=== PATIENT | female | born 1940 | race Caucasian/White ===

== ENCOUNTER 2017-11-06 10:53 | Emergency (ER) | payer OTHER ==
[~2017-11-06] VITALS: Ht 152.4 cm; Wt 69.8 kg
[~2017-11-06 10:53] MED LIST: CALCAVITD PO; CARV6.25 PO; FEXO180 PO; FISH1000 PO; LEVSOD100 PO; LEVSOD25 PO; ONDA8ODT MM; OXYACE5T PO; PENVK500 PO; PRILOSEC; Prilosec Otc20 MG; RXONDA4ODT MM; TRAM50 PO; TYLENOL W/CODEINE
[2017-11-06] MEDS ORDERED: DICL75ER PO (11:02)
[2017-11-06] MEDS ORDERED: TRAM50 PO (11:03)
[2017-11-06 11:57] LABS: BASOPHILS ABSOLUTE AUTO 0.06 K/mm3 (0.00-0.23); BASOPHILS PERCENT AUTO 1 % (0-2); EOSINOPHILS ABSOLUTE AUTO 0.16 K/mm3 (0.00-0.68); EOSINOPHILS PERCENT AUTO 2 % (0-6); Hematocrit 41.2 % (33.0-51.0); Hemoglobin 14.1 g/dL (11.5-16.0); IMMATURE GRAN ABSOLUTE AUTO 0.02 K/mm3 (0.00-0.10); IMMATURE GRAN PERCENT AUTO 0 % (0-1); LYMPHOCYTES ABSOLUTE AUTO 1.79 K/mm3 (0.84-5.20); LYMPHOCYTES PERCENT AUTO 23 % (21-46); MONOCYTES ABSOLUTE AUTO 0.67 K/mm3 (0.16-1.47); MONOCYTES PERCENT AUTO 9 % (4-13); Mean Corpuscular HGB 30.9 pg (26.0-34.0); Mean Corpuscular HGB Conc 34.2 g/dL (31.5-36.5); Mean Corpuscular Volume 90 fL (80-100); Mean Platelet Volume 8.7 fL (9.1-12.4); NEUTROPHILS ABSOLUTE AUTO 5.01 K/mm3 (1.96-9.15); NEUTROPHILS PERCENT AUTO 65 % (41-73); Platelet Count 327 K/mm3 (150-400); RDW Coefficient Variation 13.5 % (11.7-14.2); RDW Standard Deviation 44.7 fL (35.1-46.3); Red Blood Cell Count 4.57 M/mm3 (3.80-5.20); White Blood Cell Count 7.71 K/mm3 (4.00-11.30)
[2017-11-06 12:24] LABS: Albumin, Blood 3.6 g/dL (3.4-5.0); Albumin/Globulin Ratio 0.9 (0.8-1.8); Bilirubin, Total 0.6 mg/dL (0.1-1.0); Calcium, Blood 8.8 mg/dL (8.5-10.1); Globulin, Blood 4.1 g/dL (2.2-4.0); Potassium, Blood 4.1 mmol/L (3.5-5.5); Total Protein, Blood 7.7 g/dL (6.4-8.2)
[2017-11-06 13:08] LABS: Source, Urine Clean Catch
[2017-11-06 13:15] LABS: Bilirubin, Urine Neg (Neg); Blood, Urine 1+ (Neg); Glucose Qualitative, Urine Neg (Neg); Ketones, Urine Neg (Neg); Leukocyte Esterase, Urine 3+ (Neg); Nitrite, Urine Neg (Neg); Protein, Urine Neg (Neg); Urobilinogen, Urine NORM (Normal)
[2017-11-06 13:23] LABS: Appearance, Urine Clear (Clear); Color, Urine Yellow (P-Yellow)
[2017-11-06 13:26] LABS: Bacteria Few /hpf; Red Blood Cells, Urine 0-2 /hpf (0-2); Squamous Epithelial Cells Rare /hpf (Few)
== END 2017-11-06 14:39 | disposition home or self-care (01) ==
LOC: ER 10:53
PROVIDERS: Physician Assistant
DX: R06.02 Shortness of breath (principal); I48.91 Unspecified atrial fibrillation; E03.9 Hypothyroidism, unspecified; J45.909 Unspecified asthma, uncomplicated; K21.9 Gastro-esophageal reflux disease without esophagitis; Z79.899 Other long term (current) drug therapy
CPT/HCPCS: 36415; 71046; 80053; 81001; 84484; 85025; 87086; 93005; 93010; 93971; 99285-25

== ENCOUNTER 2017-11-11 11:48 | Day surgery (SDC) | payer OTHER ==
[~2017-11-11] VITALS: Wt 70.7 kg
[~2017-11-11 11:48] MED LIST changes: +DICL75ER PO
[2017-11-11] MEDS ORDERED: ASPI81CH PO (12:28)
== END 2017-11-11 13:10 | disposition home or self-care (01) ==
LOC: ORSCSDS 11:48
DX: H04.553 Acquired stenosis of bilateral nasolacrimal duct (principal); Z53.9 Procedure and treatment not carried out, unspecified reason
CPT/HCPCS: J0171

== ENCOUNTER 2018-01-08 17:03 | Inpatient (IN) | payer OTHER ==
[~2018-01-08] VITALS: Ht 165.1 cm; Wt 69.8 kg
[~2018-01-08 17:03] MED LIST changes: +ASPI81CH PO
[2018-01-08 18:53] LABS: BASOPHILS ABSOLUTE AUTO 0.07 K/mm3 (0.00-0.23); BASOPHILS PERCENT AUTO 1 % (0-2); EOSINOPHILS ABSOLUTE AUTO 0.21 K/mm3 (0.00-0.68); EOSINOPHILS PERCENT AUTO 2 % (0-6); Hematocrit 36.2 % (33.0-51.0); Hemoglobin 12.2 g/dL (11.5-16.0); IMMATURE GRAN ABSOLUTE AUTO 0.07 K/mm3 (0.00-0.10); IMMATURE GRAN PERCENT AUTO 1 % (0-1); LYMPHOCYTES ABSOLUTE AUTO 1.18 K/mm3 (0.84-5.20); LYMPHOCYTES PERCENT AUTO 11 % (21-46); MONOCYTES ABSOLUTE AUTO 0.78 K/mm3 (0.16-1.47); MONOCYTES PERCENT AUTO 7 % (4-13); Mean Corpuscular HGB 30.7 pg (26.0-34.0); Mean Corpuscular HGB Conc 33.7 g/dL (31.5-36.5); Mean Corpuscular Volume 91 fL (80-100); Mean Platelet Volume 8.6 fL (9.1-12.4); NEUTROPHILS ABSOLUTE AUTO 8.31 K/mm3 (1.96-9.15); NEUTROPHILS PERCENT AUTO 78 % (41-73); Platelet Count 341 K/mm3 (150-400); Red Blood Cell Count 3.98 M/mm3 (3.80-5.20); White Blood Cell Count 10.62 K/mm3 (4.00-11.30)
[2018-01-08 19:11] LABS: Albumin, Blood 3.5 g/dL (3.4-5.0); Bilirubin, Total 0.4 mg/dL (0.1-1.0); Calcium, Blood 8.8 mg/dL (8.5-10.1); Globulin, Blood 3.6 g/dL (2.2-4.0); Total Protein, Blood 7.1 g/dL (6.4-8.2)
[2018-01-08 20:16] LABS: Source, Urine Catheter
[2018-01-08 20:23] LABS: Bilirubin, Urine Neg (Neg); Blood, Urine 1+ (Neg); Glucose Qualitative, Urine Neg (Neg); Ketones, Urine 1+ (Neg); Leukocyte Esterase, Urine 3+ (Neg); Nitrite, Urine Neg (Neg); Protein, Urine Neg (Neg); Urobilinogen, Urine NORM (Normal)
[2018-01-08 20:25] LABS: Amorphous Light (0-Heavy); Appearance, Urine Hazy (Clear); Bacteria Few /hpf; Color, Urine Yellow (P-Yellow); Mucus Light (0-Heavy); Red Blood Cells, Urine Rare /hpf (0-2); Squamous Epithelial Cells Few /hpf (Few)
[2018-01-09 07:02] LABS: BASOPHILS ABSOLUTE AUTO 0.02 K/mm3 (0.00-0.23); BASOPHILS PERCENT AUTO 0 % (0-2); EOSINOPHILS ABSOLUTE AUTO 0.01 K/mm3 (0.00-0.68); EOSINOPHILS PERCENT AUTO 0 % (0-6); IMMATURE GRAN ABSOLUTE AUTO 0.04 K/mm3 (0.00-0.10); IMMATURE GRAN PERCENT AUTO 0 % (0-1); LYMPHOCYTES ABSOLUTE AUTO 0.86 K/mm3 (0.84-5.20); LYMPHOCYTES PERCENT AUTO 9 % (21-46); MONOCYTES ABSOLUTE AUTO 0.78 K/mm3 (0.16-1.47); MONOCYTES PERCENT AUTO 8 % (4-13); Mean Corpuscular HGB Conc 34.4 g/dL (31.5-36.5); Mean Corpuscular Volume 90 fL (80-100); Mean Platelet Volume 8.6 fL (9.1-12.4); NEUTROPHILS ABSOLUTE AUTO 7.89 K/mm3 (1.96-9.15); NEUTROPHILS PERCENT AUTO 82 % (41-73); Platelet Count 279 K/mm3 (150-400); RDW Coefficient Variation 14.1 % (11.7-14.2); RDW Standard Deviation 46.9 fL (35.1-46.3); Red Blood Cell Count 3.55 M/mm3 (3.80-5.20)
[2018-01-09 07:32] LABS: International Normalized Ratio 1.06; Prothrombin Time Results 10.9 Sec (9.7-11.5)
[2018-01-09 07:41] LABS: Anion Gap 8 mmol/L (6-16); Blood Urea Nitrogen 13 mg/dL (8-24); Bun/Creatinine Ratio 18.2 (12.0-20.0); CO2, Blood 23 mmol/L (21-32); Calcium, Blood 8.2 mg/dL (8.5-10.1); Chloride, Blood 102 mmol/L (98-108); Creatinine, Blood 0.71 mg/dL (0.40-1.00); Glomerular Filtration Rate >60 (60-); Glucose, Blood 116 mg/dL (70-99); Sodium, Blood 133 mmol/L (136-145)
[2018-01-10 05:49] LABS: BASOPHILS PERCENT AUTO 0 % (0-2); EOSINOPHILS PERCENT AUTO 0 % (0-6); IMMATURE GRAN ABSOLUTE AUTO 0.03 K/mm3 (0.00-0.10); IMMATURE GRAN PERCENT AUTO 0 % (0-1); LYMPHOCYTES ABSOLUTE AUTO 0.56 K/mm3 (0.84-5.20); LYMPHOCYTES PERCENT AUTO 6 % (21-46); MONOCYTES PERCENT AUTO 5 % (4-13); Mean Corpuscular HGB 31.2 pg (26.0-34.0); Mean Corpuscular HGB Conc 34.5 g/dL (31.5-36.5); Mean Corpuscular Volume 90 fL (80-100); Mean Platelet Volume 8.7 fL (9.1-12.4); NEUTROPHILS ABSOLUTE AUTO 8.89 K/mm3 (1.96-9.15); NEUTROPHILS PERCENT AUTO 89 % (41-73); Platelet Count 245 K/mm3 (150-400); RDW Standard Deviation 46.5 fL (35.1-46.3); Red Blood Cell Count 3.21 M/mm3 (3.80-5.20); White Blood Cell Count 9.98 K/mm3 (4.00-11.30)
[2018-01-11 05:33] LABS: BASOPHILS ABSOLUTE AUTO 0.03 K/mm3 (0.00-0.23); BASOPHILS PERCENT AUTO 0 % (0-2); EOSINOPHILS ABSOLUTE AUTO 0.12 K/mm3 (0.00-0.68); EOSINOPHILS PERCENT AUTO 1 % (0-6); Hematocrit 27.7 % (33.0-51.0); Hemoglobin 9.2 g/dL (11.5-16.0); IMMATURE GRAN ABSOLUTE AUTO 0.04 K/mm3 (0.00-0.10); IMMATURE GRAN PERCENT AUTO 0 % (0-1); LYMPHOCYTES ABSOLUTE AUTO 1.75 K/mm3 (0.84-5.20); LYMPHOCYTES PERCENT AUTO 17 % (21-46); MONOCYTES ABSOLUTE AUTO 0.95 K/mm3 (0.16-1.47); MONOCYTES PERCENT AUTO 9 % (4-13); Mean Corpuscular HGB 29.8 pg (26.0-34.0); Mean Corpuscular HGB Conc 33.2 g/dL (31.5-36.5); Mean Corpuscular Volume 90 fL (80-100); Mean Platelet Volume 9.1 fL (9.1-12.4); NEUTROPHILS ABSOLUTE AUTO 7.28 K/mm3 (1.96-9.15); NEUTROPHILS PERCENT AUTO 72 % (41-73); Platelet Count 276 K/mm3 (150-400); RDW Coefficient Variation 14.3 % (11.7-14.2); RDW Standard Deviation 46.6 fL (35.1-46.3); Red Blood Cell Count 3.09 M/mm3 (3.80-5.20); White Blood Cell Count 10.17 K/mm3 (4.00-11.30)
[2018-01-11 05:50] LABS: Anion Gap 6 mmol/L (6-16); Blood Urea Nitrogen 13 mg/dL (8-24); Bun/Creatinine Ratio 16.2 (12.0-20.0); CO2, Blood 27 mmol/L (21-32); Calcium, Blood 8.1 mg/dL (8.5-10.1); Chloride, Blood 104 mmol/L (98-108); Glomerular Filtration Rate >60 (60-); Glucose, Blood 94 mg/dL (70-99); Sodium, Blood 137 mmol/L (136-145)
[2018-01-11 13:11] LABS: Hemoglobin 9.6 g/dL (11.5-16.0)
== END 2018-01-12 15:55 | DRG 481 ==
LOC: ER 17:03 → SURS 19:22
PROVIDERS: Emergency Medicine; Family Medicine; Internal Medicine; Orthopaedic Surgery; Student in an Organized Health Care Education/Training Program
PROC: 0JQR0ZZ Repair Left Foot Subcutaneous Tissue and Fascia, Open Approach (ICD-10-PCS; 2018-01-08)
PROC: 0QS736Z Reposition Left Upper Femur with Intramedullary Internal Fixation Device, Percutaneous Approach (ICD-10-PCS; principal; 2018-01-09 14:15)
DX: S72.142A Displaced intertrochanteric fracture of left femur, initial encounter for closed fracture (principal); E87.1 Hypo-osmolality and hyponatremia; D62 Acute posthemorrhagic anemia; E03.9 Hypothyroidism, unspecified; I48.91 Unspecified atrial fibrillation; J44.9 Chronic obstructive pulmonary disease, unspecified; K21.9 Gastro-esophageal reflux disease without esophagitis; S91.012A Laceration without foreign body, left ankle, initial encounter; Z96.653 Presence of artificial knee joint, bilateral; Z66 Do not resuscitate; I48.0 Paroxysmal atrial fibrillation; R09.82 Postnasal drip; M81.0 Age-related osteoporosis without current pathological fracture; W18.30XA Fall on same level, unspecified, initial encounter; I95.89 Other hypotension; Z79.82 Long term (current) use of aspirin
CPT/HCPCS: 12005; 36415; 51702; 71045; 73502; 73560-LT; 73590; 80048; 80053; 81001; 85014; 85018; 85025; 85610; 87086; 93005; 93010; 96374; 96376; 97110; 97116; 97162; 97165; 97530; 97535; 99285-25; C1713; G8978; G8979; G8987; G8988; J0690; J1100; J1650; J2370; J2405; J3010; J7030; J7040; J7120

== ENCOUNTER 2018-04-28 12:00 | Emergency (ER) | payer OTHER ==
[~2018-04-28] VITALS: Ht 167.6 cm; Wt 65.8 kg
[2018-04-28 12:55] LABS: BASOPHILS ABSOLUTE AUTO 0.07 K/mm3 (0.00-0.23); BASOPHILS PERCENT AUTO 1 % (0-2); EOSINOPHILS ABSOLUTE AUTO 0.16 K/mm3 (0.00-0.68); EOSINOPHILS PERCENT AUTO 3 % (0-6); Hematocrit 39.3 % (33.0-51.0); Hemoglobin 12.9 g/dL (11.5-16.0); IMMATURE GRAN ABSOLUTE AUTO 0.02 K/mm3 (0.00-0.10); IMMATURE GRAN PERCENT AUTO 0 % (0-1); LYMPHOCYTES ABSOLUTE AUTO 1.11 K/mm3 (0.84-5.20); LYMPHOCYTES PERCENT AUTO 21 % (21-46); MONOCYTES ABSOLUTE AUTO 0.66 K/mm3 (0.16-1.47); MONOCYTES PERCENT AUTO 13 % (4-13); Mean Corpuscular HGB 28.2 pg (26.0-34.0); Mean Corpuscular HGB Conc 32.8 g/dL (31.5-36.5); Mean Corpuscular Volume 86 fL (80-100); Mean Platelet Volume 8.5 fL (9.1-12.4); NEUTROPHILS ABSOLUTE AUTO 3.23 K/mm3 (1.96-9.15); NEUTROPHILS PERCENT AUTO 62 % (41-73); Platelet Count 342 K/mm3 (150-400); RDW Coefficient Variation 14.7 % (11.7-14.2); RDW Standard Deviation 46.4 fL (35.1-46.3); Red Blood Cell Count 4.57 M/mm3 (3.80-5.20); White Blood Cell Count 5.25 K/mm3 (4.00-11.30)
[2018-04-28 13:13] LABS: Troponin I <0.015 ng/mL (0.000-0.040)
[2018-04-28 13:14] LABS: Alanine Aminotransfer (ALT/SGP 17 U/L (12-78); Albumin, Blood 3.6 g/dL (3.4-5.0); Albumin/Globulin Ratio 0.8 (0.8-1.8); Alk Phos 93 U/L (50-136); Anion Gap 8 mmol/L (6-16); Aspartate Aminotrans (AST/SGOT 12 U/L (12-37); Bilirubin, Total 0.5 mg/dL (0.1-1.0); Blood Urea Nitrogen 8 mg/dL (8-24); Bun/Creatinine Ratio 10.4 (12.0-20.0); CO2, Blood 24 mmol/L (21-32); Calcium, Blood 8.9 mg/dL (8.5-10.1); Chloride, Blood 98 mmol/L (98-108); Creatinine, Blood 0.77 mg/dL (0.40-1.00); Globulin, Blood 4.4 g/dL (2.2-4.0); Glomerular Filtration Rate >60 (60-); Glucose, Blood 100 mg/dL (70-99); Potassium, Blood 4.4 mmol/L (3.5-5.5); Sodium, Blood 130 mmol/L (136-145)
[2018-04-28] MEDS ORDERED: Carafate1 GM/10 ML PO (15:46)
== END 2018-04-28 16:15 | disposition home or self-care (01) ==
LOC: ER 12:00
PROVIDERS: Physician Assistant
DX: K44.9 Diaphragmatic hernia without obstruction or gangrene (principal); I48.91 Unspecified atrial fibrillation; J45.909 Unspecified asthma, uncomplicated; Z88.8 Allergy status to other drugs, medicaments and biological substances; Z79.899 Other long term (current) drug therapy; Z79.82 Long term (current) use of aspirin
CPT/HCPCS: 36415; 71260; 80053; 83880; 84484; 85025; 93005; 93010; 96360; 96361; 99285-25; J7120; Q9967

== ENCOUNTER 2018-07-12 11:18 | Emergency (ER) | payer OTHER ==
[~2018-07-12] VITALS: Ht 172.7 cm; Wt 65.8 kg
[~2018-07-12 11:18] MED LIST changes: +ASPI325 PO; -ASPI81CH PO; +Carafate1 GM/10 ML PO; -Prilosec Otc20 MG; +Prilosec Otc20 MG PO
[2018-07-12] MEDS ORDERED: CALCIUM WITH V1 EACH PO (11:34)
[2018-07-12] MEDS ORDERED: DOCU100 PO (11:35)
[2018-07-12] MEDS ORDERED: Prozac20 MG PO (11:35)
[2018-07-12] MEDS ORDERED: ALBU90OI61 INH (11:38)
[2018-07-12] MEDS ORDERED: ALLEGRA ALLERG180 M1 PO (11:38)
[2018-07-12] MEDS ORDERED: HYDR1TAB94 PO (11:39)
[2018-07-12] MEDS ORDERED: IBUP800 PO (12:43)
== END 2018-07-12 12:52 | disposition home or self-care (01) ==
LOC: ER 11:18
DX: M53.3 Sacrococcygeal disorders, not elsewhere classified (principal); M79.605 Pain in left leg; E03.9 Hypothyroidism, unspecified; I48.91 Unspecified atrial fibrillation; K21.9 Gastro-esophageal reflux disease without esophagitis; J45.909 Unspecified asthma, uncomplicated; Z79.899 Other long term (current) drug therapy; Z88.8 Allergy status to other drugs, medicaments and biological substances; Z79.82 Long term (current) use of aspirin
CPT/HCPCS: 96372; 99283-25; J1885

== ENCOUNTER 2018-11-23 15:23 | Inpatient (IN) | payer OTHER ==
[~2018-11-23] VITALS: Ht 167.6 cm; Wt 73.6 kg
[~2018-11-23 15:23] MED LIST changes: +ALBU90OI61 INH; +ALLEGRA ALLERGY60 MG PO; +DOCU100 PO; +HYDR1TAB94 PO; +IBUP800 PO; +Prozac20 MG PO
[2018-11-23] MEDS ORDERED: Norco 5-325 Ta1 EACH PO (16:55)
[2018-11-23] MEDS ORDERED: Miralax17 GM PO (16:55)
[2018-11-23] MEDS ORDERED: THERA1 EACH PO (18:53)
[2018-11-23] MEDS ORDERED: TRAM50 PO (18:53)
[2018-11-23] MEDS ORDERED: OSTEOMATRIX PO (18:55)
--- NOTE | 2018-11-23 20:33 | NUR ---
PT ADMITTED FROM ED FOR R PUBIC RAMUS FX. PT REPORTS FALLING ONTO LEFT SIDE. HEMATOMA ON LEFT ELBOW. PT A&O X4. VSS AT THIS TIME. PT ORIENTED TO ROOM AND INSTRUCTED ON HOW TO USE CALL LIGHT.
--- NOTE | 2018-11-23 23:10 | NUR ---
PT TRANSFERED FROM BED TO BSC WITH 2 MAX ASSIST. PT C/O WEAKNESS + PAIN. PT REPORTS HX OF FAINTING FROM PAIN. PT STATES "I AM GOING TO FAINT". PT ABLE TO VOID AND PUT BACK INTO BED WITH 3 MAX ASSIST. VSS. SKIN CLAMMY. COOL RAG PLACED ON FOREHEAD.
[2018-11-24 05:32] LABS: Anion Gap 5 mmol/L (6-16); Blood Urea Nitrogen 16 mg/dL (8-24); Bun/Creatinine Ratio 20.2 (12.0-20.0); CO2, Blood 25 mmol/L (21-32); Calcium, Blood 8.3 mg/dL (8.5-10.1); Chloride, Blood 104 mmol/L (98-108); Creatinine, Blood 0.79 mg/dL (0.40-1.00); Glomerular Filtration Rate >60 (60-); Glucose, Blood 97 mg/dL (70-99); Potassium, Blood 4.3 mmol/L (3.5-5.5); Sodium, Blood 134 mmol/L (136-145)
--- NOTE | 2018-11-24 07:51 | NUR ---
AT APPROX 0732 PT REPORTS "I FEEL FUNNY AGAIN". BP LOW AT 93/52. PT BECAME RIGID AND UNRESPONSIVE AGAIN. PT BREATHING WITH PULSES PALPABLE. PT RESPONSIVE AGAIN AT APPROX 0742. NARCAN ADMINISTERED. SKIN CLAMMY.
--- NOTE | 2018-11-24 07:52 | NUR ---
DR. OROSCO AT BEDSIDE. FLUID BOLUS ORDERED. PT WILL TRANSFER TO PCU.
[2018-11-24 08:11] LABS: BASOPHILS ABSOLUTE AUTO 0.03 K/mm3 (0.00-0.23); BASOPHILS PERCENT AUTO 0 % (0-2); EOSINOPHILS PERCENT AUTO 1 % (0-6); Hematocrit 31.8 % (33.0-51.0); Hemoglobin 10.3 g/dL (11.5-16.0); IMMATURE GRAN ABSOLUTE AUTO 0.03 K/mm3 (0.00-0.10); IMMATURE GRAN PERCENT AUTO 0 % (0-1); LYMPHOCYTES ABSOLUTE AUTO 1.03 K/mm3 (0.84-5.20); LYMPHOCYTES PERCENT AUTO 14 % (21-46); MONOCYTES ABSOLUTE AUTO 0.43 K/mm3 (0.16-1.47); MONOCYTES PERCENT AUTO 6 % (4-13); Mean Corpuscular HGB 27.7 pg (26.0-34.0); Mean Corpuscular HGB Conc 32.4 g/dL (31.5-36.5); Mean Corpuscular Volume 86 fL (80-100); NEUTROPHILS ABSOLUTE AUTO 5.86 K/mm3 (1.96-9.15); NEUTROPHILS PERCENT AUTO 78 % (41-73); Platelet Count 233 K/mm3 (150-400); RDW Coefficient Variation 14.9 % (11.7-14.2); RDW Standard Deviation 46.5 fL (35.1-46.3); Red Blood Cell Count 3.72 M/mm3 (3.80-5.20); White Blood Cell Count 7.48 K/mm3 (4.00-11.30)
--- NOTE | 2018-11-24 08:39 | NUR ---
0730 ASSUMED CARE OF PATIENT. PATIENT STATES IS DIZZY AND DOESNT FEEL WWEEL. PLACED ON TELE WHICH SHOWS SINUS TACH. DR OROSCO NOTIFIED BY HARRY CURIEL RN AND DR OROSCO HERE TO SEE PATIENT. NEW ORDERS RECEIVED. PATIENT GIVEN 0.2 MG OF NARCAN WHICH RESULTED IN NO CHANGE IN VITAKL SIGNS BUT CAUSED INCREASE IN PAIN LEVEL TO HIPS. FLUID BOLUS INITIATED. ORDERS RECEIVED FOR TRANSFER TO PCU PTS DAUGHTER HNOTIFIED OF TRANSFER. REPORT PHONED TO DIRECTOR UNDERWRITER SALES 9PATIENT TO ICU DUE TO BED AVAILABILITY) PATIENT TO ICU AT 0840
--- NOTE | 2018-11-24 09:30 | NUR ---
PT TO CT. SBP 90'S, PT REMAINS SYMPTOMATIC.
--- NOTE | 2018-11-24 09:45 | NUR ---
0840: PT TO ICU 14, REPORT RECEIVED. 0910:PT REMAINS HYPOTENSIVE, IS PALE, NAUSEATED, AND FEELING LIGHT HEADED. BOLUS INFUSING PER ORDERS. PT REPORTS RLQ PAIN, RLQ RIGID, NO BRUISING NOTED OVER ABD, HIPS, OR BACK. DR. OROSCO NOTIFIED, NEW ORDERS RECEIVED. SECOND BOLUS INITIATED, PT ALERT AND ORIENTED X4, BED IN SLIGHT [place]. DR. DE OLIVEIRA NOTIFIED OF CONSULT ORDER. 0950: KUB COMPLETED, DR. DE OLIVEIRA AT BEDSIDE, NEW ORDERS.
[2018-11-24 10:46] LABS: BASOPHILS ABSOLUTE AUTO 0.05 K/mm3 (0.00-0.23); BASOPHILS PERCENT AUTO 0 % (0-2); EOSINOPHILS ABSOLUTE AUTO 0.02 K/mm3 (0.00-0.68); EOSINOPHILS PERCENT AUTO 0 % (0-6); Hematocrit 23.4 % (33.0-51.0); Hemoglobin 7.3 g/dL (11.5-16.0); IMMATURE GRAN ABSOLUTE AUTO 0.16 K/mm3 (0.00-0.10); IMMATURE GRAN PERCENT AUTO 1 % (0-1); LYMPHOCYTES ABSOLUTE AUTO 1.44 K/mm3 (0.84-5.20); LYMPHOCYTES PERCENT AUTO 9 % (21-46); MONOCYTES ABSOLUTE AUTO 0.96 K/mm3 (0.16-1.47); MONOCYTES PERCENT AUTO 6 % (4-13); Mean Corpuscular HGB 28.5 pg (26.0-34.0); Mean Corpuscular HGB Conc 31.2 g/dL (31.5-36.5); Mean Platelet Volume 9.3 fL (9.1-12.4); NEUTROPHILS ABSOLUTE AUTO 13.64 K/mm3 (1.96-9.15); NEUTROPHILS PERCENT AUTO 84 % (41-73); NRBC ABSOLUTE 0.03 K/mm3 (0.00-0.02); NRBC Auto 0.2 /100 WBC (0.0-0.2); Platelet Count 211 K/mm3 (150-400); RDW Coefficient Variation 15.3 % (11.7-14.2); RDW Standard Deviation 51.4 fL (35.1-46.3); Red Blood Cell Count 2.56 M/mm3 (3.80-5.20); White Blood Cell Count 16.27 K/mm3 (4.00-11.30)
[2018-11-24 10:48] LABS: Mean Corpuscular Volume 91 fL (80-100)
[2018-11-24 11:01] LABS: International Normalized Ratio 1.18; Prothrombin Time Results 12.3 Sec (9.7-11.5)
--- NOTE | 2018-11-24 11:30 | NUR ---
PICC LINE PLACED R UPPER ARM BY YEYO YARBROUGH. BANDA INSERTED, PT TURNED ONTO RIGHT SIDE TO PROVIDE VLAD CARE AND BECAME UNRESPONSIVE WITH TETANY OF EXTREMETIES AND DILATED PUPILS, VOMITED, HR 40'S, CENTRAL PULSES WEAK. CODE BLUE CALLED, PT REPOSITIONED, REGAINED CONSCIOUSNESS, ANSWERING QUESTIONS, NO POSTICTAL STATE. SBP 90'S UPON WAKING. DR. DE OLIVEIRA AT BEDSIDE, NEW ORDERS. BLOOD SPECIMENS SENT TO LAB, LEVOPHED AND 3RD NS BOLUS INFUSING. HR 110 SINUS TACH AT THIS TIME, PT C/O PAIN, ANSWERING QUESTIONS. ORDERS FOR INTUBATION PER DR. DE OLIVEIRA, PT SEDATED WITH ETOMIDATE AND PARALYZED WITH ROCURONIUM. INTUBATED AT [address] DE OLIVEIRA, TUBE SIZE 7.5, 25CM AT TEETH. PLACEMENT CONFIRMED WITH AUSCULTATION AND ETCO2, VENT SETTINGS AC 14, Vt 350, PEEP 5, FIO2 50%. PT'S RR 14-22, SPO2 97%. OGT PLACED WITH LIWS, CXR COMPLETED. BLOOD INFUSING PER ORDERS, LS CLEAR, THEN COARSE DURING TRANSFUSION, NS BOLUS STOPPED. FENTANYL ADMINISTERED FOR AGITAITON, PT TO CTA AT THIS TIME. 1145: CTA SHOWS ACTIVE BLEEDING, PT TO DESIGN PROJECT MANAGER.
--- NOTE | 2018-11-24 13:14 | NUR ---
PT RETURNED FROM HOSE CEMENTER, LEFT GROIN ACCESS SITE WNL, NO OOZING OR HEMATOMA NOTED. VENT SETTINGS UNCHANGED, VSS. LEVO 20MCG, PROPOFOL 20MCG, VASOPRESSIN 0.04U, NS 10ML/HR. FFP TO GRAVITY. NO AGITATION OR RESTLESSNESS NOTED AT THIS TIME. SWB RESTRAINTS IN PLACE.
[2018-11-24 14:15] LABS: Hematocrit 25.3 % (33.0-51.0); Hemoglobin 8.3 g/dL (11.5-16.0)
[2018-11-24 14:37] LABS: Base Excess Venous -6.1 mmol/L; Bicarbonate Venous 19.5 mmol/L (24.0-30.0); PCO2 Venous 38.5 mmHg (38-42); PO2 Venous 43.5 mmHg (38-42); pH Blood Venous 7.32 (7.34-7.37)
[2018-11-24 14:41] LABS: International Normalized Ratio 1.16; Prothrombin Time Results 12.1 Sec (9.7-11.5)
--- NOTE | 2018-11-24 17:02 | NUR ---
1500: PT RESTING QUIETLY IN BED, VSS AT THIS TIME WITH LEVO AND VASOPRESSIN, PT CALM AND QUIET WITH PROPOFOL. BUE SOFT RESTRAINTS IN PLACE, TOLERATING VENT SETTINGS WELL. WILL ATTEMPT TO TITRATE LEVO ABLE. FAMILY AT BEDSIDE, QUESTIONS ANSWERED. AND RT HAVE SPOKEN WITH FAMILY REGARDING EVEN AND PT STATUS. 1700: PT CONTINUES TO REST, ATTEMPTING TO TITRATE LEVO DOWN SLOWLY. NO MAINTAINENCE FLUIDS INFUSING PER DR. DE OLIVEIRA. VENT SETTINGS AC 16, Vt 350, PEEP 5, FIO3 40%. RR 16-20, SPO2 >95%.
--- NOTE | 2018-11-24 17:49 | NUR ---
Responded to code and met with family later in day. Dtr, Vanessa was present at bedside. Facilitated story telling and affirmed obvious love. Pt is Yazidism and family appreciative of prayer and spiritual support. Vanessa is hopeful for full and complete recovery. I will remain available.
[2018-11-24 18:07] LABS: Hematocrit 23.8 % (33.0-51.0); Hemoglobin 7.8 g/dL (11.5-16.0)
--- NOTE | 2018-11-24 19:27 | NUR ---
1900: BP STABLE AT THIS TIME, LEVO 20MCG, VASOPRESSIN 0.04MCG, UNABLE TO TITRATE PRESSERS DOWN MAP WOULD NOT TOLERATE. VENT SETTINGS AC 16, Vt 350, PEEP 5, FIO2 40%, SPO2 >95%, RR 16-20. PT LIGHTLY SEDATED WITH PROPOFOL 25MCG, APPEARS TO BE RESTING COMFORTABLY AT THIS TIME AFTER FENTANYL ADMINISTERED. PT OPENS EYES TO VOICE, ABLE TO ANSWER QUESTIONS, IS RESTING QUIETLY WITH NO AGITAITON/RESTLESSNESS NOTED. URINE OUTPUT <30ML/HR. DR. DE OLIVEIRA AWARE OF MOST RECENT HGB, NO NEW ORDERS RECEIVED AT THIS TIME. RLQ REMAINS TENDER TO PALPATION, SWELLING HAS NOT APPEARED TO INCREASE SINCE PT WENT TO DIRECTOR GRAPHICS. LEFT GROIN ACCESS WNL, NO OOZING NOTED, NO HEMATOMA PRESENT, LEFT PEDAL PULSE 2+. ICE TO LEFT ELBOW, ELBOW ELEVATED ON PILLOW, HEMATOMA AND BRUISING PRESENT FROM MID UPPER ARM TO WRIST. DAUGHTER REMAINS AT BEDSIDE, REPORT TO ONCOMING NURSES.
--- NOTE | 2018-11-24 19:45 | NUR ---
ASSESSMENT/ASSUMED CARE PT INTUBATED AND ON [facility] VENT. VENT SETTINGS AC 14 TV 350 PEEP 5 FIO2 40%. LUNGS CLEAR. RESP EVEN AND NONLABORED. ET TUBE 7.5. HEART RATE REGUAR. BP TO RIGHT LOWER LEG STABLE ON LEVOPHED AT 20 MCQ/MIN AND VASOPRESSING AT 0.04 UNIT. NO LOWER EXT EDEMA NOTED. BT+ BUT HYPOACTIVE. ABD TENDER TO RLQ, FIRMNESS NOTED TO RLQ. AREA MARKED AND DR DE OLIVEIRA ASSESSED. OG TO LIS, PLACEMENT CHECKED. FOELY CATH PATENT DRAINING JUANI URINE WITH SMALL RED CLOTS NOTED IN TUBING. RIGHT GROIN ACCESS STABLE NOT BLEEDING OR HEMATOMA NOTED. SOFT TO PALPATION. PICC LINE TO RIGHT UPPER ARM, SITE CLEAR. LEVOPHED AT 20 MCQ/MIN, VASOPESSIN AT 0.04 UNIT, AND PROPOFOL AT 25 MCQ/KG.MIN DECREASED TO 20 MCQ/KG/MIN PER DR DE OLIVEIRA. POWER GLIDE TO LEFT UPPER ARM WITH NS AT 10 ML/HR, SITE CLEAR. LEFT ELBOW WITH SWELLING AND BRUISING NOTED. REPOSITIONED TO RIGHT WITH HOB UP. ORAL CARE DONE. 20G IV TO RIGHT AC AND RIGHT WRIST DC'D INTACT, NOT NEEDED.
[2018-11-24 20:30] LABS: Albumin, Blood 2.4 g/dL (3.4-5.0); Albumin/Globulin Ratio 0.8 (0.8-1.8); Bilirubin, Total 0.9 mg/dL (0.1-1.0); Calcium, Blood 7.2 mg/dL (8.5-10.1); Creatinine, Blood 1.06 mg/dL (0.40-1.00); Globulin, Blood 2.9 g/dL (2.2-4.0); Magnesium, Blood 1.9 mg/dL (1.6-2.4); Phosphorus, Blood 3.8 mg/dL (2.5-4.9); Potassium, Blood 4.9 mmol/L (3.5-5.5); Total Protein, Blood 5.3 g/dL (6.4-8.2)
--- NOTE | 2018-11-24 20:37 | NUR ---
CALL TO MD CALL TO DR DE OLIVEIRA REGARDING CA 1.08, ORDER RECEIVED FOR CA GLUCONATE 2GM
--- NOTE | 2018-11-24 21:26 | NUR ---
PAIN PT AWAKE, NODS HEAD "YES" WHEN ASKED IF HAVING PAIN. MED WITH FENTAYL 50 MCQ FOR PAIN. TYLENOL GIVEN VIA OG TUBE FOR TEMP 100.6. OG TUBE CLAMPED. BLANKETS REMOVED AND SHEET APPLIED
[2018-11-24 21:53] LABS: Hematocrit 22.5 % (33.0-51.0); Hemoglobin 7.3 g/dL (11.5-16.0)
--- NOTE | 2018-11-24 22:00 | NUR ---
PT TRYING TO SIT UP IN BED. PROPOFOL INCREASE TO 25 MCQ/KG/MIN
--- NOTE | 2018-11-24 22:02 | NUR ---
H&H PT REPOSITIONED. LABS DRAWN VIA POWER GLIDE. H&H 7.3/.5. ORDER TO TRANSFUSE ONE UNIT PRBC RECEIVED FROM DR DE OLIVEIRA
--- NOTE | 2018-11-24 23:08 | NUR ---
TRANSFUSION TRANSFUSION OF PRBC STARTED. VSS. LUNGS CLEAR
--- NOTE | 2018-11-24 23:47 | NUR ---
REASSESSMENT PT RECEIVING ONE UNIT PRBC AT THIS TIME. LUNGS CLEAR ON VENT AC 14 TV 350 PEEP 5 FIO2 40%. ORAL CARE DONE. REPOSITONED AND BED BATH DONE. VSS. POOR URINE OUTPUT REPORTED TO DR DE OLIVEIRA, NO NEW ORDERS AT THIS TIME. OG TUBE UNCLAMPED AND ON LIS.
[2018-11-25 00:39] LABS: Source, Urine Catheter
[2018-11-25 00:43] LABS: Appearance, Urine Clear (Clear); Bilirubin, Urine Neg (Neg); Blood, Urine 3+ (Neg); Color, Urine Amber (P-Yellow); Glucose Qualitative, Urine Neg (Neg); Ketones, Urine 1+ (Neg); Leukocyte Esterase, Urine 1+ (Neg); Nitrite, Urine Neg (Neg); Protein, Urine 2+ (Neg); Specific Gravity, Urine 1.025 (1.003-1.022); Urobilinogen, Urine 1+ (Normal)
[2018-11-25 00:48] LABS: Amorphous Light (0-Heavy); Bacteria Mod /hpf; Hyaline Casts 0-2 /lpf (0-2); Squamous Epithelial Cells Rare /hpf (Few)
--- NOTE | 2018-11-25 01:51 | NUR ---
TRANSFUSION TRANSFUSION COMPLETE. PT RESTING QUIELTY. LEVOPHED DOWN TO 10 MCQ/MIN
[2018-11-25 02:34] LABS: BASOPHILS ABSOLUTE AUTO 0.04 K/mm3 (0.00-0.23); BASOPHILS PERCENT AUTO 0 % (0-2); EOSINOPHILS ABSOLUTE AUTO 0.01 K/mm3 (0.00-0.68); EOSINOPHILS PERCENT AUTO 0 % (0-6); Hematocrit 25.6 % (33.0-51.0); Hematocrit 25.8 % (33.0-51.0); Hemoglobin 8.8 g/dL (11.5-16.0); IMMATURE GRAN ABSOLUTE AUTO 0.09 K/mm3 (0.00-0.10); IMMATURE GRAN PERCENT AUTO 1 % (0-1); LYMPHOCYTES ABSOLUTE AUTO 1.71 K/mm3 (0.84-5.20); LYMPHOCYTES PERCENT AUTO 12 % (21-46); MONOCYTES ABSOLUTE AUTO 1.21 K/mm3 (0.16-1.47); MONOCYTES PERCENT AUTO 8 % (4-13); Mean Corpuscular HGB 30.3 pg (26.0-34.0); Mean Corpuscular HGB Conc 34.1 g/dL (31.5-36.5); Mean Corpuscular Volume 89 fL (80-100); Mean Platelet Volume 9.8 fL (9.1-12.4); NEUTROPHILS ABSOLUTE AUTO 11.28 K/mm3 (1.96-9.15); NEUTROPHILS PERCENT AUTO 79 % (41-73); Platelet Count 117 K/mm3 (150-400); RDW Coefficient Variation 14.4 % (11.7-14.2); RDW Standard Deviation 46.7 fL (35.1-46.3); White Blood Cell Count 14.34 K/mm3 (4.00-11.30)
[2018-11-25 02:52] LABS: Anion Gap 6 mmol/L (6-16); Blood Urea Nitrogen 19 mg/dL (8-24); Bun/Creatinine Ratio 21.1 (12.0-20.0); CO2, Blood 23 mmol/L (21-32); Calcium, Blood 7.7 mg/dL (8.5-10.1); Chloride, Blood 105 mmol/L (98-108); Glomerular Filtration Rate >60 (60-); Glucose, Blood 145 mg/dL (70-99); Magnesium, Blood 1.9 mg/dL (1.6-2.4); Phosphorus, Blood 3.9 mg/dL (2.5-4.9); Potassium, Blood 4.9 mmol/L (3.5-5.5); Sodium, Blood 134 mmol/L (136-145)
--- NOTE | 2018-11-25 05:16 | NUR ---
SHIFT SUMMARY PT CONT INTUBATED AND ON MECH VENT. PT AWAKES EASILY TO VERBAL STIMULI. DENIES PAIN AT THIS TIME. PT MOVING EXT AND TURNING WITH ASSIST. BILAT WRIST RESTRAINT. CXR DONE. LUNGS CLEAR ON VENT SETTING AC 14 TV 350 PEEP 5 FIO2 40%. LEVOPHED DOWN FROM 20 MCQ/MIN TO 4 MCQ/MIN. VASOPRESSIN CONT AT 0.04UNITS. PROPOFOL TITRATED DOWN TO 20 MCQ/KG/MIN THAN BACK UP TO 25 MCQ/KG/MIN DUE TO PT TRYING TO SIT UP IN BED. MED WITH FENTANY ONCE FOR PAIN. OG TO LIS, CURRENTLY CLAMPED DUE TO RECEIVING MEDS PER TUBE. BT+ HYPOACTIVE. RLQ SOFTER TO PALP AND REDUCED SWELLING NOTED. LEFT GROIN STABLE. PICC LINE TO RIGHT UPPER ARM AND POWER GLIDE TO LEFT UPPER ARM, BOTH SITES STABLE. BANDA CATH PATENT DRAINING JUANI URINE, OUTPUT 284 FOR THIS SHIFT. REPORT TO ON COMING NURSE.
--- NOTE | 2018-11-25 08:39 | NUR ---
CARE ASSUMED, ASSESSMENT COMPLETED. VENT SETTINGS AC 14, Vt 350, PEEP 5, FIO2 40%. PROPOFOL 25MCG, VASOPRESSIN 0.4MCG, LEVO 4MCG, VASOPRESSIN SHUT OFF FOR STABLE MAP'S. PT DROWSY BUT AWAKE, FOLLOWING COMMANDS, COOPERATIVE WITH CARE. LEFT GROIN ACCESS SITE WNL, RLQ REMAINS SLIGHTLY TENDER TO PALPATION, DISTENSION IMPROVING, ABD SOFT IN ALL QUADRANTS, NO BRUISING NOTED TO RIGHT ABD, FLANK, OR BACK. HEMATOMA TO LEFT ELBOW SOFTENING, BRUISING DARK PURPLE FROM MID UPPER ARM DOWN TO LOWER FA. PT REPOSITIONED, WILL TITRATE LEVO ABLE.
--- NOTE | 2018-11-25 09:13 | NUR ---
PT ON SPONTANEOUS VENT SETTING AT THIS TIME, PREPARING TO EXTUBATE PER DR. RUEDA. VSS, SPO2 99%, RR 20, Vt'S 400'S.
--- NOTE | 2018-11-25 09:47 | NUR ---
PT TOLERATED SPONT BREATHING TRIAL WELL, RR 14-22, SPO2 >95%, Vt'S 400-600'S. EXTUBATED BY RT AT 0945, 3L/NC PLACED, SPO2 96%. PROPOFOL OFF, SWB RESTRAINTS DC'D AT THIS TIME. PT ALERT AND ORIENTED X4, CALM AND COOPERATIVE. SON AT BEDSIDE, WILL CONTINUE TO TITRATE LEVO DOWN ABLE.
[2018-11-25 10:24] LABS: Hematocrit 21.8 % (33.0-51.0); Hemoglobin 7.4 g/dL (11.5-16.0)
--- NOTE | 2018-11-25 12:15 | NUR ---
1000: PT TOLERATING 3L/NC WELL, SPO2 94% ORAL CARE DONE, DENTURES IN PER PT REQUEST. SON AT BEDSIDE. 1030: PT ATTEMPTED TO USE BEDPAN, NO SUCCESS. REPOSITIONED. 1200: TITRATING LEVO DOWN ABLE. LEFT ELBOW WRAPPED WITH ODILIA BANDAGE, PLACED IN SLING, ICE PACK APPLIED. ZOFRAN ADMINISTERED FOR NAUSEA. PT VISITING WITH DAUGHTER.
--- NOTE | 2018-11-25 13:49 | NUR ---
1300: DR. RUEDA AWARE OF HGB, NO NEW ORDERS AT THIS TIME.
--- NOTE | 2018-11-25 16:13 | NUR ---
1610: PT BACK FROM EDUCATIONAL PARAPROFESSIONAL, SHEATH PULLED IN LAB, DRESSING TO RIGHT POPLITEAL VEIN ACCESS SITE CDI, SITE WNL WITH NO BLEEDING/HEMATOMA NOTED. LEFT GROIN ACCESS SITE WNL, UNCHANGED. VSS AT THIS TIME, PT DENIES CP/SOB, IS ANXIOUS TO GET HOME. COOPERATIVE WITH CARE, REMAINS IN SUPINE POSITION PER ACCESS PRECAUTIONS. PEDAL PULSES PALPABLE BILAT.
--- NOTE | 2018-11-25 16:35 | NUR ---
1500: PT ATTEMPTED TO USE BEDPAN WITHOUT SUCCESS, STATES SHE FEELS LIKE SHE IS IMPACTED. SMALL AMOUNT OF HARD STOOL DIGITALLY DISIMPACTED FROM RECTUM AT THIS TIME BY THIS RN, PT REPORS RELIEF. PT REPOSITIONED, DENIES OTHER NEEDS. VSS. 1630: PT AT BEDSIDE TO WORK WITH PT. PT NOW RESTING WITH EYES CLOSED, VSS.
--- NOTE | 2018-11-25 18:16 | NUR ---
ELBOW CT COMPLETED, PT TOLERATED WELL. MAP AT THIS TIME 94, LEVO REMAINS OFF. DR. KAUR AT BEDSIDE, AWAITING HGB RESULTS. PT SITTING UP IN BED EATING SOUP, DENIES NEEDS AT THIS TIME.
[2018-11-25 18:20] LABS: Hematocrit 18.1 % (33.0-51.0); Hemoglobin 6.1 g/dL (11.5-16.0)
--- NOTE | 2018-11-25 18:59 | NUR ---
DR. CHRIS NOTIFIED OF DECREASING HGB, PT TO GO BACK TO PULMONOLOGIST FOR INTERVENTION. PT NPO AT 1845, PULMONOLOGIST STAFF AWARE. LEVO REMAINS OFF, MAPS CONSISTENTLY >65. LR INFUSING AT 75ML/HR, NS AT TKO, NO OTHER GTTS AT THIS TIME. PT ALERT AND ORIENTED X4, DENIES NEEDS AT THIS TIME. PT UPDATED ON PLAN OF CARE, WILL NOTIFY PT'S DAUGHTER PER HER REQUEST. WILL ALSO NOTIFY DR. RUEDA. RIGHT ABD REMAINS SOFT, SLIGHTLY TENDER AND SWOLLEN, NO NOTEABLE CHANGE IN SWELLING TO RLQ THIS SHIFT. LEFT GROIN ACCESS SITE REMAINS WNL WITH NO CHANGES NOTED, DRESSING CDI. SLING OFF OF LEFT ARM PER DR. PORTILLO, ODILIA BANDAGE REMAINS ON. HR 110'S AT THIS TIME, TEMP 100.4, BLANKETS OFF. REPORT TO ONCOMING SHIFT.
--- NOTE | 2018-11-25 19:20 | NUR ---
PT TO PROFILE MILL OPERATOR TAPE CONTROL WITH PROFILE MILL OPERATOR TAPE CONTROL STAFF AT THIS TIME. MESSAGES LEFT FOR DR. RUEDA AND FOR PT'S DAUGHTER, ANT.
[2018-11-25 22:29] LABS: Hemoglobin 5.6 g/dL (11.5-16.0)
[2018-11-25 22:30] LABS: Hematocrit 16.5 % (33.0-51.0)
--- NOTE | 2018-11-25 22:45 | NUR ---
ASSESSMENT/CALL TO PT ARRIVED BACK FROM HOME CARE PHYSICAL THERAPIST AT 2155 VIA BED WITH HOME CARE PHYSICAL THERAPIST STAFF. PT AWAKE, SMILING. PT C/O "GENERAL" PT MED WITH ULTRAM. PT STATES,"I'M REALLY HUNGRY". PT ATE YOGURT WITHOUT DIFFICULTY. LUNGS CLEAR BUT DECREASED IN THE BASES ON 4 LITERS O2 VIA NC. DENIES SOB. PRODUCTIVE COUGH NOTED, PT SWALLOWING. HEART RATE REGULAR. DENIES CHEST PAIN OR PRESSURE. NO EDEMA. LEFT ARM SWOLLEN WITH BRUISING, ODILIA WRAP ON. BT+ ABD SOFT AND NONTENDER AT THIS TIME. DENIES N/V. LEFT GROIN ANGIOSEAL SITE SOFT TO PALP, NO HEMATOMA OR BLEEDING NOTED. PEDAL PULSES 1+. BILAT RADIAL PULSES STRONG. BANDA CATH PATENT 300 ML DARK JUANI URINE EMPTIED. POWER GLIDE TO LEFT UPPER ARM WITH NS AT 10 ML/HR, SITE CLEAR. PICC LINE TO RIGHT UPPER ARM WITH LR AT 75 ML/HR, SITE CLEAR. LABS DRAWN VIA PICC. H&H CRITICAL AT 5.6/16.5, CALLED TO DR RUEDA, NEW ORDERS RECEIVED FOR 2 UNITS PRBC THAN DRAW H&H IF UNDER 7 TRANSFUSE 3 UNIT. FAMILY WENT HOME FOR THE NIGHT.
--- NOTE | 2018-11-25 23:26 | NUR ---
TRANSFUSION PT AWAKE, REPORTS PAIN DOWN TO 4/10. 1ST UNIT PRBC STARTED. LUNGS CLEAR. LEFT GROIN STABLE
--- NOTE | 2018-11-25 23:53 | NUR ---
REASSESSMENT PT AWAKE, RESTING QUIETLY. REPOSITIONED TO RIGHT WITH HOB UP 15 DEGREES. LEFT GROIN STABLE. FIRST UNIT PRBC INFUSING. LUNGS CLEAR BUT DECREASED IN THE BASES ON 4 LITERS O2 VIA NC. HEART RATE REGULAR. BP STABLE. BANDA CATH PATENT.
--- NOTE | 2018-11-26 01:25 | NUR ---
PAIN PT AWAKE, C/O PAIN "ALL OVER" AND MUSCLE SPASMS TO LEGS. REPOSITIONED TO LEFT. MED WITH FENTANYL 25MCQ.
--- NOTE | 2018-11-26 02:07 | NUR ---
TRANSFUSION 2ND UNIT PRBC STARTED. PT RESTING ARCELIA
--- NOTE | 2018-11-26 03:53 | NUR ---
REASSESSMENT PT SLEEPING, SECOND UNIT PRBC INFUSING. RESP EVEN AND NONLABORED. VSS. LUNGS CLEAR BUT DECREASED IN BASES.
[2018-11-26 05:50] LABS: BASOPHILS ABSOLUTE AUTO 0.03 K/mm3 (0.00-0.23); BASOPHILS PERCENT AUTO 0 % (0-2); EOSINOPHILS ABSOLUTE AUTO 0.15 K/mm3 (0.00-0.68); EOSINOPHILS PERCENT AUTO 2 % (0-6); Hematocrit 22.8 % (33.0-51.0); Hemoglobin 7.7 g/dL (11.5-16.0); IMMATURE GRAN ABSOLUTE AUTO 0.05 K/mm3 (0.00-0.10); IMMATURE GRAN PERCENT AUTO 1 % (0-1); LYMPHOCYTES ABSOLUTE AUTO 1.15 K/mm3 (0.84-5.20); LYMPHOCYTES PERCENT AUTO 15 % (21-46); MONOCYTES ABSOLUTE AUTO 0.49 K/mm3 (0.16-1.47); MONOCYTES PERCENT AUTO 6 % (4-13); Mean Corpuscular HGB 30.4 pg (26.0-34.0); Mean Corpuscular HGB Conc 33.8 g/dL (31.5-36.5); Mean Corpuscular Volume 90 fL (80-100); Mean Platelet Volume 9.7 fL (9.1-12.4); NEUTROPHILS ABSOLUTE AUTO 5.86 K/mm3 (1.96-9.15); NEUTROPHILS PERCENT AUTO 76 % (41-73); RDW Coefficient Variation 14.7 % (11.7-14.2); RDW Standard Deviation 47.4 fL (35.1-46.3); Red Blood Cell Count 2.53 M/mm3 (3.80-5.20); White Blood Cell Count 7.73 K/mm3 (4.00-11.30)
[2018-11-26 05:54] LABS: Platelet Count 86 K/mm3 (150-400)
[2018-11-26 06:01] LABS: Albumin, Blood 2.3 g/dL (3.4-5.0); Anion Gap 5 mmol/L (6-16); Blood Urea Nitrogen 11 mg/dL (8-24); Bun/Creatinine Ratio 16.5 (12.0-20.0); CO2, Blood 25 mmol/L (21-32); Calcium, Blood 7.4 mg/dL (8.5-10.1); Chloride, Blood 107 mmol/L (98-108); Creatinine, Blood 0.67 mg/dL (0.40-1.00); Glomerular Filtration Rate >60 (60-); Glucose, Blood 88 mg/dL (70-99); Phosphorus, Blood 2.1 mg/dL (2.5-4.9); Potassium, Blood 3.8 mmol/L (3.5-5.5); Sodium, Blood 137 mmol/L (136-145)
--- NOTE | 2018-11-26 06:15 | NUR ---
SHIFT SUMMARY PT RESTING QUIETLY. PT WENT TO DINING SERVICE WORKER AND HAD 7 COILS DONE TO STOP BLEEDING FROM PELVIS FX BY DR BUSH. ANGIOSEAL DONE TO LEFT GROIN ACCESS. GROIN SITE STABLE, SOFT TO PALP. NO BLEEDING OR HEMATOMA. PT RECEIVED 2 UNITS PRBC FOR H&H OF 5.6/16.5, H&H NOW UP TO 7.7/22.8. RLQ ABD SOFT AND LESS TENDER. PT MED DURING THE NIGHT WITH ULTRAM AND FENTANYL FOR GENERAL PAIN. LEFT ELBOW WITH ODILIA WRAP AND ELEVATED ON PILLOW. INCREASED URINE OUTPUT NOTED. PT REMAINED OFF LEVOPHED WITH STABLE BP'S. REPORT TO ON COMING NURSE
--- NOTE | 2018-11-26 08:06 | NUR ---
0715-ASSUMED CARE OF PT. PT IS ALERT AND ORIENTED. PT STATES THAT HER LEFT ARM IS "SORE" REFUSED PAIN MEDICATION AT THIS TIME. PULSES ARE PALPABLE. R LOWER ABDOMEN SLIGHT HEMATOMA NOTED. PER REPORT FROM NOC RN, HEMATOMA HAS IMPROVED FROM WHERE IT WAS 2 DAYS AGO. L GROIN ACCESS SITE IS STABLE-NO HEMATOMA/BLEEDING/BRUISING NOTED.
--- NOTE | 2018-11-26 09:26 | NUR ---
0850-PT SEEN BY DR. RUEDA. UPDATED HIM OF PT'S STATUS. 0859-DR. PORTILLO AT BEDSIDE. UPDATED HIM OF PT'S STATUS WELL.
[2018-11-26 09:42] LABS: Hematocrit 24.4 % (33.0-51.0); Hemoglobin 8.2 g/dL (11.5-16.0)
[2018-11-26 13:27] LABS: Hematocrit 23.9 % (33.0-51.0)
--- NOTE | 2018-11-26 15:17 | NUR ---
PT SLEEPING SOUNDLY AFTER RECEIVING TRAMADOL. AWAKENS WHEN REPOSITIONED.
--- NOTE | 2018-11-26 18:20 | NUR ---
SHIFT SUMMARY: PT'S H&H IS STABLE. PT IS ALERT AND ORIENTED. SYSTOLIC BLOOD PRESSURE 100-150. WITH OCCASSIONAL PRODUCTIVE COUGH. PT IS ABLE TO SUCTION HERSELF. STABLE GROIN SITE ACCESS. LEFT ARM STABLE. PT RECEIVED A DOSE OF FENTANYL X 1 AND TRAMADOL 100MG X 1
[2018-11-26 19:17] LABS: Hematocrit 23.3 % (33.0-51.0); Hemoglobin 7.9 g/dL (11.5-16.0)
--- NOTE | 2018-11-26 20:36 | NUR ---
[place] of Care: Patient alert and oriented x4, sitting upright in bed. Denies dyspnea/SOB, O2-90-94% on 2L/NC, VSS. Rt lower/lateral ABD hematoma noted, no change in hematoma and appears to be decreasing in size per day shift RN. H+H stable, assessing q6hr. Lt groin arterial access site wnl, no s/s of active bleeding/hematoma. PICC line to МАРИЯ patent and intact, Power-glide to TK patent and intact. Mcnally cath patent and intact, draining clear yellow urine. ODILIA bandage to lt arm per fx r/t to fall at home, elevated on pillows. C/o pain 6/10 to back and hips, prn fentanyl given at this time, will continue to monitor and give prn ultram as indicated. Call light in reach, makes needs known. Will continue to monitor for pain, comfort, safety.
[2018-11-27 01:26] LABS: Hematocrit 23.1 % (33.0-51.0); Hemoglobin 7.8 g/dL (11.5-16.0)
[2018-11-27 04:26] LABS: BASOPHILS ABSOLUTE AUTO 0.04 K/mm3 (0.00-0.23); BASOPHILS PERCENT AUTO 1 % (0-2); EOSINOPHILS ABSOLUTE AUTO 0.37 K/mm3 (0.00-0.68); EOSINOPHILS PERCENT AUTO 5 % (0-6); Hematocrit 23.6 % (33.0-51.0); IMMATURE GRAN ABSOLUTE AUTO 0.09 K/mm3 (0.00-0.10); IMMATURE GRAN PERCENT AUTO 1 % (0-1); LYMPHOCYTES ABSOLUTE AUTO 1.23 K/mm3 (0.84-5.20); LYMPHOCYTES PERCENT AUTO 17 % (21-46); MONOCYTES ABSOLUTE AUTO 0.53 K/mm3 (0.16-1.47); MONOCYTES PERCENT AUTO 7 % (4-13); Mean Corpuscular HGB Conc 33.9 g/dL (31.5-36.5); Mean Corpuscular Volume 92 fL (80-100); Mean Platelet Volume 9.5 fL (9.1-12.4); NEUTROPHILS ABSOLUTE AUTO 5.17 K/mm3 (1.96-9.15); NEUTROPHILS PERCENT AUTO 70 % (41-73); NRBC ABSOLUTE 0.02 K/mm3 (0.00-0.02); NRBC Auto 0.3 /100 WBC (0.0-0.2); Platelet Count 113 K/mm3 (150-400); RDW Coefficient Variation 15.3 % (11.7-14.2); RDW Standard Deviation 50.3 fL (35.1-46.3); Red Blood Cell Count 2.58 M/mm3 (3.80-5.20); White Blood Cell Count 7.43 K/mm3 (4.00-11.30)
[2018-11-27 04:43] LABS: Albumin, Blood 2.2 g/dL (3.4-5.0); Anion Gap 6 mmol/L (6-16); Blood Urea Nitrogen 6 mg/dL (8-24); Bun/Creatinine Ratio 8.8 (12.0-20.0); CO2, Blood 27 mmol/L (21-32); Calcium, Blood 7.6 mg/dL (8.5-10.1); Chloride, Blood 103 mmol/L (98-108); Creatinine, Blood 0.68 mg/dL (0.40-1.00); Glomerular Filtration Rate >60 (60-); Glucose, Blood 83 mg/dL (70-99); Phosphorus, Blood 1.9 mg/dL (2.5-4.9); Potassium, Blood 3.9 mmol/L (3.5-5.5); Sodium, Blood 136 mmol/L (136-145)
--- NOTE | 2018-11-27 06:08 | NUR ---
Shift Summary: Patient slept well throughout shift. C/o pain to back/hips effectively managed with prn fentanyl x2 and prn ultram. Continues to deny dyspnea/SOB, O2-92-94% on 2L/NC, VSS. PICC line (МАРИЯ), and power-glide (TK) remain patent and intact. Mcnally cath remains patent and intact, draining clear yellow urine. Lt groin site remains wnl, no s/s of active bleeding/hematoma. No changes noted to rt lower/lateral ABD hematoma, no s/s of active bleeding, H+H remains stable. 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 Sleeping at this time. Call light in reach, makes needs known. Will continue to monitor for pain, safety, comfort.
--- NOTE | 2018-11-27 07:15 | NUR ---
START OF SHIFT NOTE: PATIENT IS AWAKE, ALERT AND ORIENTED, LUNG SOUNDS ARE CLEAR BUT DIMINISHED, NSR WITH HR IN 80'S TO 90'S, BOWEL TONES HYPOACTIVE, PATIENT HAS BANDA CATHETER THAT IS DRAINING LARGE AMOUNTS OF YELLOW CLEAR URINE, RIGHT ABDOMINAL HEMATOMA SOFT AND NONTENDER UPON PALPATION, PATIENT REPORTED "IT FEELS MUCH BETTER", RIGHT FLANK SOFT AND NONTENDER, LEFT GROIN ACCESS SITE SOFT, NONTENDER, NO HEMATOMA, NO BLEEDING, AFEBRILE, DENIES PAIN OTHERWISE, LEFT ARM ELEVATED D/T AVULSION FX OF ELBOW, HAND SLIGHTLY SWOLLEN AND DISCOLORED, PATIENT ABLE TO MOVE ARM AND REPORTS MINIMAL DISCOMFORT, CALL LIGHT IN REACH, WILL CONTINUE TO MONITOR.
--- NOTE | 2018-11-27 08:00 | NUR ---
DR. RUEDA IN TO SEE PATIENT, NEW ORDERS RECEIVED, PATIENT WAS PLACED IN CHAIR POSITION FOR BREAKFAST AND ATE WELL, CONTINUES TO COUGH UP THICK WHITE SECRETIONS, ABLE TO CLEAR THEM, USES YANKAUER TO SUCTION SELF, CALL LIGHT IN REACH, WILL CONTINUE TO MONITOR.
--- NOTE | 2018-11-27 08:45 | NUR ---
PATIENT PLACED ON BEDPAN, CALL LIGHT IN REACH, WILL CONTINUE TO MONITOR.
--- NOTE | 2018-11-27 08:54 | NUR ---
DR. HERNANDEZ IN TO SEE PATIENT.
--- NOTE | 2018-11-27 09:26 | NUR ---
PATIENT OFF BEDPAN, ONLY HAD TWO SMALL PELLETS, RECEIVED DULCOLAX SUPPOSITORY IN ADDITION TO ORAL LAXATIVES, CALL LIGHT IN REACH, WILL CONTINUE TO MONITOR.
--- NOTE | 2018-11-27 09:30 | NUR ---
PATIENT'S SON SOO ON PHONE, UPDATE PROVIDED AND THEN TRANSFERRED INTO PATIENT'S ROOM.
--- NOTE | 2018-11-27 11:28 | NUR ---
PATIENT PLACED ON BEDPAN WITH 2 ASSIST, CALL LIGHT IN REACH, WILL CONTINUE TO MONITOR.
--- NOTE | 2018-11-27 12:01 | NUR ---
PATIENT ON BEDPAN, SMALL AMOUNT OF PELLETS.
--- NOTE | 2018-11-27 12:04 | NUR ---
DR. MARQUEZ IN TO SPEAK WITH SIGNIFICANT OTHER ABOUT PATIENT'S SITUATION AND POSSIBLE COMFORT CARE STATUS CHANGE.
--- NOTE | 2018-11-27 12:22 | NUR ---
JP, PT, IN TO SEE PATIENT.
--- NOTE | 2018-11-27 12:47 | NUR ---
PATIENT RECEIVED 4 MG ZOFRAN IV FOR NAUSEA, AND ALSO 50 MCG OF FENTANYL IV PRIOR TO WORKING WITH PHYSICAL THERAPY.
--- NOTE | 2018-11-27 13:04 | NUR ---
PATIENT WORKING WITH PT, FENTANYL NOT VERY EFFECTIVE, WILL GIVE TRAMADOL.
--- NOTE | 2018-11-27 14:12 | NUR ---
PATIENT IS RESTING COMFORTABLY WITH EYES CLOSED, APPEARS TO BE SLEEPING, CALL LIGHT IN REACH, WILL CONTINUE TO MONITOR.
--- NOTE | 2018-11-27 14:40 | NUR ---
REPORT CALLED TO YEYO VASQUEZ, SURGICAL FLOOR, PATIENT WILL BE TRANSFERRED WITH BED AND ALL BELONGINGS.
--- NOTE | 2018-11-27 14:58 | NUR ---
ARRIVAL TO UNIT PT ARRIVAL TO UNIT AT THIS TIME. TRANSFERRED FROM ICU BED TO SURGICAL BED VIA SLIDER SHEET. PT DENIES PAIN AT REST. LUNG SOUNDS CLEAR T/O, ON 1L VIA NC TO MAINTAIN SATS >90%. PEDAL PULSES PALPABLE AND PT DENIES N/T. L ARM WRAPPED IN ODILIA WRAP AND ELEVATED ON PILLOWS. L HAND AND FINGERS WITH MODERATE EDEMA. PT CAN WIGGLE FINGERS. ICU NURSE REPORTS THAT PT ALREADY WORKED WITH PT/OT TODAY. BANDA WITH CLEAR YELLOW URINE. PICC LINE SL. ORIENTED TO ROOM AND CALL LIGHT. PT HAS NO COMPLAINTS AT THIS TIME. CALL LIGHT WITHIN REACH.
--- NOTE | 2018-11-27 16:16 | NUR ---
SHIFT SUMMARY NO ACUTE CHANGES SINCE ARRIVAL TO UNIT. VSS. PT REPORTS PAIN TOLERABLE AT REST. DENIES N/V. REPOSITIONED FOR COMFORT PRN. MALE VISITOR AT BEDSIDE FOR SUPPORT. CALL LIGHT WITHIN REACH.
[2018-11-27 19:14] LABS: Hematocrit 24.9 % (33.0-51.0); Hemoglobin 8.3 g/dL (11.5-16.0)
[2018-11-28 05:35] LABS: BASOPHILS ABSOLUTE AUTO 0.05 K/mm3 (0.00-0.23); BASOPHILS PERCENT AUTO 1 % (0-2); EOSINOPHILS ABSOLUTE AUTO 0.37 K/mm3 (0.00-0.68); EOSINOPHILS PERCENT AUTO 5 % (0-6); Hematocrit 24.8 % (33.0-51.0); Hemoglobin 8.2 g/dL (11.5-16.0); IMMATURE GRAN ABSOLUTE AUTO 0.14 K/mm3 (0.00-0.10); IMMATURE GRAN PERCENT AUTO 2 % (0-1); LYMPHOCYTES ABSOLUTE AUTO 1.24 K/mm3 (0.84-5.20); LYMPHOCYTES PERCENT AUTO 17 % (21-46); MONOCYTES PERCENT AUTO 10 % (4-13); Mean Corpuscular HGB 30.7 pg (26.0-34.0); Mean Corpuscular HGB Conc 33.1 g/dL (31.5-36.5); Mean Corpuscular Volume 93 fL (80-100); Mean Platelet Volume 9.7 fL (9.1-12.4); NEUTROPHILS ABSOLUTE AUTO 4.84 K/mm3 (1.96-9.15); NEUTROPHILS PERCENT AUTO 66 % (41-73); NRBC ABSOLUTE 0.03 K/mm3 (0.00-0.02); NRBC Auto 0.4 /100 WBC (0.0-0.2); Platelet Count 159 K/mm3 (150-400); RDW Coefficient Variation 15.3 % (11.7-14.2); RDW Standard Deviation 50.7 fL (35.1-46.3); Red Blood Cell Count 2.67 M/mm3 (3.80-5.20); White Blood Cell Count 7.34 K/mm3 (4.00-11.30)
[2018-11-28 05:51] LABS: Albumin, Blood 2.3 g/dL (3.4-5.0); Anion Gap 4 mmol/L (6-16); Blood Urea Nitrogen 5 mg/dL (8-24); Bun/Creatinine Ratio 7.7 (12.0-20.0); CO2, Blood 29 mmol/L (21-32); Calcium, Blood 7.8 mg/dL (8.5-10.1); Chloride, Blood 102 mmol/L (98-108); Creatinine, Blood 0.65 mg/dL (0.40-1.00); Glomerular Filtration Rate >60 (60-); Glucose, Blood 86 mg/dL (70-99); Phosphorus, Blood 2.9 mg/dL (2.5-4.9); Potassium, Blood 3.8 mmol/L (3.5-5.5); Sodium, Blood 135 mmol/L (136-145)
--- NOTE | 2018-11-28 05:59 | NUR ---
SHIFT SUMMARY: PT A&O X4 THROUGHOUT SHIFT. VS WNL. PT VERY PAINFUL; STARTED ON NORCO WHICH PT REPORTS TO BE MORE EFFECTIVE THAN ULTRAM. GIVEN 50 MCG FENTANYL ONCE. LEFT ARM REMAINS BRUISED AND SWOLLEN. WRAPPED IN ODILIA WRAP. ACCESS SITE TO LEFT GROIN IS WNL. NO BLEEDING OR HEMATOMA NOTED. HGB STABLE THIS MORNING AT 8.2. PT DONTRELL REG DIET. DENIES N/V. NO BM THIS SHIFT.
--- NOTE | 2018-11-28 16:21 | NUR ---
SHIFT SUMMARY NO ACUTE CHANGES TODAY. VSS. PT RECEIVING 1 NORCO FOR PAIN PRN. DONTRELL REG DIET. IV SL. BANDA PATENT AND DRAINING YELLOW URINE. 2 ASSIST WITH REPOSITIONING AND PT WAS ABLE TO SIT ON SIDE OF BED AND DANGLE TODAY. L GROIN SITE WNL. SWELLING TO L ARM/HAND IMPROVED SINCE YESTERDAY. CONT TO ELEVATE. MULT VISITORS TODAY. PT USES CALL LIGHT APPROPRIATELY.
[2018-11-28 19:31] LABS: Hematocrit 25.7 % (33.0-51.0); Hemoglobin 8.5 g/dL (11.5-16.0)
--- NOTE | 2018-11-29 07:49 | NUR ---
SUMMARY NO ACUTE CHANGES THROUGH THE NIGHT, PAIN MANAGED PRN PER EMAR. GROIN SITE REMAINS C/D/I. SOLO DREW PATENT. CALL LIGHT IN REACH
[2018-11-29 09:03] LABS: BASOPHILS ABSOLUTE AUTO 0.05 K/mm3 (0.00-0.23); BASOPHILS PERCENT AUTO 1 % (0-2); EOSINOPHILS ABSOLUTE AUTO 0.31 K/mm3 (0.00-0.68); EOSINOPHILS PERCENT AUTO 4 % (0-6); Hematocrit 27.2 % (33.0-51.0); Hemoglobin 8.9 g/dL (11.5-16.0); IMMATURE GRAN ABSOLUTE AUTO 0.23 K/mm3 (0.00-0.10); IMMATURE GRAN PERCENT AUTO 3 % (0-1); LYMPHOCYTES ABSOLUTE AUTO 0.86 K/mm3 (0.84-5.20); LYMPHOCYTES PERCENT AUTO 10 % (21-46); MONOCYTES ABSOLUTE AUTO 0.61 K/mm3 (0.16-1.47); MONOCYTES PERCENT AUTO 7 % (4-13); Mean Corpuscular HGB 29.9 pg (26.0-34.0); Mean Corpuscular HGB Conc 32.7 g/dL (31.5-36.5); Mean Corpuscular Volume 91 fL (80-100); Mean Platelet Volume 9.6 fL (9.1-12.4); NEUTROPHILS ABSOLUTE AUTO 6.38 K/mm3 (1.96-9.15); NEUTROPHILS PERCENT AUTO 76 % (41-73); NRBC ABSOLUTE 0.06 K/mm3 (0.00-0.02); NRBC Auto 0.7 /100 WBC (0.0-0.2); Platelet Count 201 K/mm3 (150-400); RDW Coefficient Variation 15.9 % (11.7-14.2); RDW Standard Deviation 49.6 fL (35.1-46.3); Red Blood Cell Count 2.98 M/mm3 (3.80-5.20); White Blood Cell Count 8.44 K/mm3 (4.00-11.30)
[2018-11-29 09:34] LABS: Anion Gap 10 mmol/L (6-16); Blood Urea Nitrogen 7 mg/dL (8-24); Bun/Creatinine Ratio 10.9 (12.0-20.0); CO2, Blood 24 mmol/L (21-32); Chloride, Blood 101 mmol/L (98-108); Creatinine, Blood 0.64 mg/dL (0.40-1.00); Glomerular Filtration Rate >60 (60-); Glucose, Blood 129 mg/dL (70-99); Potassium, Blood 3.9 mmol/L (3.5-5.5); Sodium, Blood 135 mmol/L (136-145)
--- NOTE | 2018-11-29 18:32 | NUR ---
Initial Visit: Palliative Care Consult for AD/POLST, Advanced Care Planning. Pt is A&O and reports 8/10 pain in her back, pelvis, and elbow. Pt denies anxiety and dyspnea at this time. Engaged in therapeutic discussion regarding advanced care planning. Pt reports living at home alone and is of [employer] [place]. She reports having discussion with he cousin and plan is for cousin to come stay with Pt and assist with care needs until Pt recovers. Pt also reports additional support between her children and friends. Engaged in discussion regarding AD/POLST. Pt reports having a completed POLST at home. Requested for Pt to bring a copy to hospital for records. Pt reports she does not remember wishes that are completed. Suggested to Pt to look over existing POLST and determine if wishes are the same. Handed Pt a new POLST and AD and instructed if wishes are different to complete a new one. Educated Pt on life sustaining measures including risk factors. Educated on sections to be completed for POLST and AD. Educated on the importance for correction plan for the possibility of needing [employer] assistance with care due to her history of falls. Pt reports plan to sell her house and down size to help reduce upkeep. Pt reports hopefullness this will help reduce her fall risk. Pt reports no other concerns at this time. Spoke with bedside nurse Dahiana and discussed case. Reported Pt's pain and Dahiana is offering pain medication by end of visit. Palliative Care will remain available.
--- NOTE | 2018-11-29 19:37 | NUR ---
SHIFT SUMMARY PATIENT UP TO CHAIR FOR APPROX 5 HOURS THIS AFTERNOON; TOLERATED WELL. SBA WITH PT BACK TO BED W/CATALINA WALKER. TOLERATING PO. HAD LG UNFORMED STOOL TO BEDPAN. FC D/C'D PER ORDER @1700; NO VOID YET. VISITORS IN TO SEE. PALLIATIVE CARE WITH PATIENT FOR APPROX 30 MIN THIS LATE AFTERNOON. PATIENT HOPING TO RETURN HOME.
--- NOTE | 2018-11-30 03:39 | NUR ---
PT C/O PAIN MEDS BEING INEFFECTIVE WITH REPORT OF PAIN INCREASING AND SPASMS T/O DAY.ALSO C/O L HEEL INTERMITTENTLY TINGLING.I CALLED HOSPITALIST AT 2350 AND ADVISED OF ABOVE C/O. ORDERED TORADOL X1 DOSE WITH ADDITION OF FLEXERIL FOR SPASMS.PT REPORTED THESE TO BE INEFFECTIVE WELL. REPOSITIONING ALSO NOT HELPING.I GAVE NORCO WHICH AGAIN REPORTED INEFFECTIVE. PT STATED CONCERN SOMETHING HAPPENED WHILE INCREASING ACTIVITY.ATTENDS WET X1 WITH PT STATING WAS "TRYING TO HOLD IT AND NOT CALL WAS NOT GOING TO GET ON BEDPAN AND HURT BEYOND TOLERANCE TO GET OOB.PT DID VERB SLIGHT IMPROVEMENT OF DISCOMFORT L PELVIC AREA AFTER URINATING.I BLADDER SCANNED PT WITH RESULT OF 638.PT CONT TO REFUSE BEDPAN OR OOB FOR VOID. PT REQUESTING BANDA.I CALLED DR RODRÍGUEZ AT 0200 WITH DISCUSSION OF PRIOR MEDS AND LAST ORDERS RECEIVED. ALSO DISCUSSED PT CONCERNS WELL CONTINUED UNCONTROLLED PAIN.STATED PAIN STARTED INCREASING BETWEEN 3;30-4 PM .NEW ORDERS WERE RECEIVED. PT WAS GIVEN DILAUDID AND BANDA WAS PLACED WITH REPORTED GOOD PAIN CONTROL.ADVISED PT SHE WOULD BE GETTING PELVIC XRAY IN AM.PT VERB PLEASED WITH CURRENT STATUS. STATING HER COMFORT LEVEL IS THE "BEST IT HAS BEEN ALL DAY". PT ON CONT PULSE OX FOR HIGH RISK PAIN MANAGEMENT AND PLACED 02 2 L N/C FOR R/A SATS 89 W/A.CURRENTLY 96 % ON 2L.
[2018-11-30 04:33] LABS: BASOPHILS ABSOLUTE AUTO 0.05 K/mm3 (0.00-0.23); BASOPHILS PERCENT AUTO 1 % (0-2); EOSINOPHILS ABSOLUTE AUTO 0.18 K/mm3 (0.00-0.68); EOSINOPHILS PERCENT AUTO 2 % (0-6); Hematocrit 25.2 % (33.0-51.0); Hemoglobin 8.1 g/dL (11.5-16.0); IMMATURE GRAN ABSOLUTE AUTO 0.33 K/mm3 (0.00-0.10); IMMATURE GRAN PERCENT AUTO 4 % (0-1); LYMPHOCYTES ABSOLUTE AUTO 0.96 K/mm3 (0.84-5.20); LYMPHOCYTES PERCENT AUTO 10 % (21-46); MONOCYTES PERCENT AUTO 9 % (4-13); Mean Corpuscular HGB 29.8 pg (26.0-34.0); Mean Corpuscular HGB Conc 32.1 g/dL (31.5-36.5); Mean Corpuscular Volume 93 fL (80-100); Mean Platelet Volume 9.5 fL (9.1-12.4); NEUTROPHILS ABSOLUTE AUTO 6.94 K/mm3 (1.96-9.15); NEUTROPHILS PERCENT AUTO 75 % (41-73); NRBC ABSOLUTE 0.03 K/mm3 (0.00-0.02); NRBC Auto 0.3 /100 WBC (0.0-0.2); Platelet Count 238 K/mm3 (150-400); RDW Coefficient Variation 16.2 % (11.7-14.2); RDW Standard Deviation 51.1 fL (35.1-46.3); Red Blood Cell Count 2.72 M/mm3 (3.80-5.20); White Blood Cell Count 9.26 K/mm3 (4.00-11.30)
[2018-11-30 04:48] LABS: Anion Gap 5 mmol/L (6-16); Blood Urea Nitrogen 10 mg/dL (8-24); Bun/Creatinine Ratio 12.9 (12.0-20.0); CO2, Blood 27 mmol/L (21-32); Calcium, Blood 8.1 mg/dL (8.5-10.1); Chloride, Blood 100 mmol/L (98-108); Creatinine, Blood 0.78 mg/dL (0.40-1.00); Glomerular Filtration Rate >60 (60-); Glucose, Blood 97 mg/dL (70-99); Potassium, Blood 4.1 mmol/L (3.5-5.5); Sodium, Blood 132 mmol/L (136-145)
--- NOTE | 2018-11-30 06:43 | NUR ---
SUMMARY PT REPORTS STILL PLEASED WITH PAIN CONTROL.
--- NOTE | 2018-11-30 10:31 | NUR ---
DR LION IN ROOM, [facility] WILL ORDER BANDA R/T RETENTION.
--- NOTE | 2018-11-30 16:51 | NUR ---
SHIFT SUMMARY A&OX4, VSS, ARASELI PELVIC FX'S WBAT, FX L ELBOW IN ODILIA WRAP NWB. PAIN MANAGED WITH 10 MG Q4. DONTRELL PO, DENIES N&V. AMB W/CATALINA WALKER AND GB STAND PIVOT TO CHAIR/BED/BSC. PICC МАРИЯ. DR LION ORDERED BANDA TO REMAIN IN FOR RETENTION. UP TO CHAIR FOR MEALS. WCTM & TX PER EMAR UNTIL REPORT GIVEN TO ONCOMING ALEXIA RN.
[2018-12-01 04:37] LABS: BASOPHILS ABSOLUTE AUTO 0.05 K/mm3 (0.00-0.23); BASOPHILS PERCENT AUTO 1 % (0-2); EOSINOPHILS ABSOLUTE AUTO 0.32 K/mm3 (0.00-0.68); EOSINOPHILS PERCENT AUTO 3 % (0-6); Hematocrit 24.3 % (33.0-51.0); Hemoglobin 7.8 g/dL (11.5-16.0); IMMATURE GRAN PERCENT AUTO 3 % (0-1); LYMPHOCYTES ABSOLUTE AUTO 1.19 K/mm3 (0.84-5.20); LYMPHOCYTES PERCENT AUTO 13 % (21-46); MONOCYTES ABSOLUTE AUTO 0.78 K/mm3 (0.16-1.47); MONOCYTES PERCENT AUTO 8 % (4-13); Mean Corpuscular HGB 29.8 pg (26.0-34.0); Mean Corpuscular HGB Conc 32.1 g/dL (31.5-36.5); Mean Corpuscular Volume 93 fL (80-100); Mean Platelet Volume 9.2 fL (9.1-12.4); NEUTROPHILS ABSOLUTE AUTO 6.64 K/mm3 (1.96-9.15); NEUTROPHILS PERCENT AUTO 72 % (41-73); NRBC ABSOLUTE 0.02 K/mm3 (0.00-0.02); NRBC Auto 0.2 /100 WBC (0.0-0.2); Platelet Count 290 K/mm3 (150-400); RDW Coefficient Variation 16.2 % (11.7-14.2); RDW Standard Deviation 51.6 fL (35.1-46.3); Red Blood Cell Count 2.62 M/mm3 (3.80-5.20); White Blood Cell Count 9.28 K/mm3 (4.00-11.30)
[2018-12-01 04:57] LABS: Anion Gap 7 mmol/L (6-16); Blood Urea Nitrogen 10 mg/dL (8-24); Bun/Creatinine Ratio 14.8 (12.0-20.0); CO2, Blood 27 mmol/L (21-32); Calcium, Blood 8.1 mg/dL (8.5-10.1); Chloride, Blood 100 mmol/L (98-108); Creatinine, Blood 0.67 mg/dL (0.40-1.00); Glomerular Filtration Rate >60 (60-); Glucose, Blood 85 mg/dL (70-99); Sodium, Blood 134 mmol/L (136-145)
--- NOTE | 2018-12-01 07:20 | NUR ---
PT AWAKE REQ I RE HEAT UP HER COFFEE STATED SHE WANTS TO HOLD HER LACTULOSE THIS AM STATED SHE FEELS BETTER HAD MULT LOOSE BM YESTERDAY OVERALL PAIN IS 3/10 ASKED PT IF HER R SIDE IS HURTING OR MORE SWOLLEN THIS AM AREA IS MARKED PT STATED PAIN TO THAT AREA IS BETTER STATED AFTER THE BM IT IMPROVED
--- NOTE | 2018-12-01 07:36 | NUR ---
SHIFT SUMMARY: PT A&O X4 T/O SHIFT. VS STABLE. O2 SATS >93% ON 1-2L O2 VIA NC. PAIN MANAGED WITH NORCO Q4 PER EMAR. GIVEN 0.5MG OF DILAUDID ONCE. ODILIA WRAP TO LEFT ARM FOR ELBOW FX. ACCESS SITE TO LEFT GROIN WNL. PICC TO МАРИЯ. SLIGHT DECREASE IN HGB & HCT THIS MORNING OF 7.8 & 24.3. SALINE LOCKED. PT REPORTS FREQ BM'S YESTERDAY DURING THE DAY AND POOR APPETITE. NO BM OVERNIGHT. BANDA PATENT AND DRAINING.
--- NOTE | 2018-12-01 10:18 | NUR ---
1 UNIT PRBC INFUSING
--- NOTE | 2018-12-01 12:00 | NUR ---
pt eating lunch meds given sitting up in chair with physical therapy
[2018-12-01 15:34] LABS: Hematocrit 29.7 % (33.0-51.0); Hemoglobin 9.8 g/dL (11.5-16.0)
--- NOTE | 2018-12-01 15:55 | NUR ---
iv dilaudid given bladder scan [address] orozco h+h sent to lab pt denies dizziness still feels bladder pressure laying down and having small amt leaking around the cath dr orozco notified also re bruising to r upper leg to post aspect and swelling will attempt to place in trendelenburg for 30-45 min and re eval bladder scan used iv vs po pain meds for pain control
--- NOTE | 2018-12-01 16:30 | NUR ---
dr toney by to see pt removed ana wrap earlier to l arm ok to keep off also discussed labs and bleeding to r lower leg and bladder scan
--- NOTE | 2018-12-01 17:46 | NUR ---
talked with dr dipak orozco re pt's labs and symptoms and second bladder scan result pt has had another 200 to 300 ml uo post was 464 ml pt sitting upright eating dinner will cont to monitor for urine output and if pt has any blood in the urine or increased pain in the bladder
[2018-12-02 03:44] LABS: BASOPHILS ABSOLUTE AUTO 0.05 K/mm3 (0.00-0.23); BASOPHILS PERCENT AUTO 1 % (0-2); EOSINOPHILS ABSOLUTE AUTO 0.26 K/mm3 (0.00-0.68); EOSINOPHILS PERCENT AUTO 3 % (0-6); Hematocrit 29.7 % (33.0-51.0); Hemoglobin 9.9 g/dL (11.5-16.0); IMMATURE GRAN ABSOLUTE AUTO 0.22 K/mm3 (0.00-0.10); IMMATURE GRAN PERCENT AUTO 2 % (0-1); LYMPHOCYTES ABSOLUTE AUTO 0.97 K/mm3 (0.84-5.20); LYMPHOCYTES PERCENT AUTO 10 % (21-46); MONOCYTES ABSOLUTE AUTO 0.75 K/mm3 (0.16-1.47); MONOCYTES PERCENT AUTO 8 % (4-13); Mean Corpuscular HGB 30.7 pg (26.0-34.0); Mean Corpuscular HGB Conc 33.3 g/dL (31.5-36.5); Mean Corpuscular Volume 92 fL (80-100); Mean Platelet Volume 8.7 fL (9.1-12.4); NEUTROPHILS ABSOLUTE AUTO 7.14 K/mm3 (1.96-9.15); NEUTROPHILS PERCENT AUTO 76 % (41-73); Platelet Count 310 K/mm3 (150-400); RDW Coefficient Variation 16.2 % (11.7-14.2); RDW Standard Deviation 52.6 fL (35.1-46.3); Red Blood Cell Count 3.22 M/mm3 (3.80-5.20); White Blood Cell Count 9.39 K/mm3 (4.00-11.30)
[2018-12-02 03:59] LABS: Anion Gap 7 mmol/L (6-16); Blood Urea Nitrogen 9 mg/dL (8-24); Bun/Creatinine Ratio 15.1 (12.0-20.0); CO2, Blood 27 mmol/L (21-32); Calcium, Blood 8.1 mg/dL (8.5-10.1); Chloride, Blood 101 mmol/L (98-108); Glomerular Filtration Rate >60 (60-); Glucose, Blood 84 mg/dL (70-99); International Normalized Ratio 1.02; Potassium, Blood 3.8 mmol/L (3.5-5.5); Prothrombin Time Results 10.8 Sec (9.7-11.5); Sodium, Blood 135 mmol/L (136-145)
--- NOTE | 2018-12-02 05:57 | NUR ---
SHIFT SUMMARY: PT A&O X4 T/O SHIFT. VS WNL. PAIN MANAGED WITH NORCO Q4 PER EMAR. GIVEN DILAUDID 0.5MG ONCE. PT C/O PRESSURE ON BLADDER. BLADDER SCANNED THROUGHOUT SHIFT. PT LEAKING AROUND CATHETER. SEDIMENT OBSERVED IN BANDA CATHETER. BANDA IRRIGATED. BRUISING TO R INNER THIGH, R HIP AND L HIP OUTLINED WITH MARKER. HGB STABLE AT 9.9 THIS MORNING.
--- NOTE | 2018-12-02 07:53 | NUR ---
ASSESSMENT: PT SLEEPING AT THIS TIME. NO S/S DISTRESS OR PAIN. CALL LIGHT IN REACH. WILL ALLOW REST AND DO FULL ASSESSMENT WHEN AWAKE.
--- NOTE | 2018-12-02 17:48 | NUR ---
DISCHARGE: PT DC TO [facility] AT THIS TIME. PICC LINE AND POWERGLIDE REMOVED WNL. REPORT CALLED TO ACCEPTING RN. PT LEFT VIA TRANSPORT IN WHEELCHAIR WITH BELONGINGS.
== END 2018-12-02 16:06 | DRG 957 ==
LOC: ER 15:23 → SURS 15:24 → ICUW 11-24 08:31 → SURS 11-24 10:19 → ICUW 11-24 10:19 → SURS 11-27 14:42
PROVIDERS: Family Medicine; Internal Medicine Critical Care Medicine; Internal Medicine Pulmonary Disease; Student in an Organized Health Care Education/Training Program; ADMIT Hospitalist
PROC: 04L Lower Arteries, Occlusion (ICD-10-PCS; principal; 2018-11-24)
PROC: 30233N1 Transfusion of Nonautologous Red Blood Cells into Peripheral Vein, Percutaneous Approach (ICD-10-PCS; 2018-11-24)
PROC: B41GZZZ Fluoroscopy of Left Lower Extremity Arteries (ICD-10-PCS; 2018-11-24)
PROC: B41JZZZ Fluoroscopy of Other Lower Arteries (ICD-10-PCS; 2018-11-24)
PROC: 3E033XZ Introduction of Vasopressor into Peripheral Vein, Percutaneous Approach (ICD-10-PCS; 2018-11-24)
PROC: 0BH17EZ Insertion of Endotracheal Airway into Trachea, Via Natural or Artificial Opening (ICD-10-PCS; 2018-11-24)
PROC: 30233K1 Transfusion of Nonautologous Frozen Plasma into Peripheral Vein, Percutaneous Approach (ICD-10-PCS; 2018-11-24)
PROC: 02HV33Z Insertion of Infusion Device into Superior Vena Cava, Percutaneous Approach (ICD-10-PCS; 2018-11-24)
PROC: 5A1935Z Respiratory Ventilation, Less than 24 Consecutive Hours (ICD-10-PCS; 2018-11-24)
DX: S35.511A Injury of right iliac artery, initial encounter (principal); K66.1 Hemoperitoneum; S32.591A Other specified fracture of right pubis, initial encounter for closed fracture; J96.90 Respiratory failure, unspecified, unspecified whether with hypoxia or hypercapnia; T79.4XXA Traumatic shock, initial encounter; E87.1 Hypo-osmolality and hyponatremia; D62 Acute posthemorrhagic anemia; S32.511A Fracture of superior rim of right pubis, initial encounter for closed fracture; S30.0XXA Contusion of lower back and pelvis, initial encounter; W19.XXXA Unspecified fall, initial encounter; Y93.H2 Activity, gardening and landscaping; Y92.017 Garden or yard in single-family (private) house as the place of occurrence of the external cause; Y99.8 Other external cause status; K21.9 Gastro-esophageal reflux disease without esophagitis; F32.9 Major depressive disorder, single episode, unspecified; I48.0 Paroxysmal atrial fibrillation; E03.9 Hypothyroidism, unspecified; Z66 Do not resuscitate; R33.9 Retention of urine, unspecified; K59.00 Constipation, unspecified
CPT/HCPCS: 31500; 31720; 36246; 36247; 36415; 36430; 36569; 37244; 51702; 71045; 72170; 72191; 73080; 73200; 73502; 74176; 75710; 75736; 75774; 76377; 76937; 80048; 80053; 80069; 81001; 82330; 82803; 83605; 83735; 84100; 84484; 85014; 85018; 85025; 85610; 85730; 86850; 86870; 86900; 86901; 86922; 93005; 93010; 94002; 94003; 94640; 94760; 94762; 96361; 96372; 96374; 96375; 96376; 97110; 97163; 97164; 97166; 97530; 97535; 99152; 99285-25; C1751; C1760; C1769; C1887; C1894; C9113; G0378; J0610; J1170; J1644; J1650; J1885; J2250; J2310; J2405; J2704; J3010; J7030; J7040; J7050; J7060; J7120; P9016; P9046; P9059; Q9967

== ENCOUNTER 2018-12-05 05:40 | Emergency (ER) | payer OTHER ==
[~2018-12-05] VITALS: Ht 165.1 cm; Wt 63.5 kg
[~2018-12-05 05:40] MED LIST changes: +Miralax17 GM PO; +Norco 5-325 Ta1 EACH PO; +OSTEOMATRIX PO; +THERA1 EACH PO
[2018-12-05 06:52] LABS: Source, Urine Catheter
[2018-12-05 06:56] LABS: Bilirubin, Urine Neg (Neg); Blood, Urine 4+ (Neg); Glucose Qualitative, Urine Neg (Neg); Ketones, Urine 1+ (Neg); Leukocyte Esterase, Urine 3+ (Neg); Nitrite, Urine Pos (Neg); Protein, Urine 2+ (Neg); Specific Gravity, Urine 1.005 (1.003-1.022); Urobilinogen, Urine 2+ (Normal)
[2018-12-05 07:02] LABS: Appearance, Urine Turbid (Clear); Color, Urine Yellow (P-Yellow)
[2018-12-05 07:04] LABS: Bacteria Many /hpf; Squamous Epithelial Cells Many /hpf (Few); White Blood Cells, Urine TNTC /hpf (0-5)
[2018-12-05 07:05] LABS: Transitional Epithelial Cells Few /hpf (0-Rare)
[2018-12-05] MEDS ORDERED: Keflex500 MG PO (07:21)
[2018-12-05] MEDS ORDERED: Pyridium100 MG PO (07:25)
== END 2018-12-05 07:40 | disposition home or self-care (01) ==
LOC: ER 05:40
PROVIDERS: Emergency Medicine
DX: N39.0 Urinary tract infection, site not specified (principal); J45.909 Unspecified asthma, uncomplicated; I48.0 Paroxysmal atrial fibrillation; K21.9 Gastro-esophageal reflux disease without esophagitis; E03.9 Hypothyroidism, unspecified; F32.9 Major depressive disorder, single episode, unspecified; Z79.899 Other long term (current) drug therapy
CPT/HCPCS: 51702; 81001; 87077; 87086; 87186; 99283-25

== ENCOUNTER → 2019-04-01 | Outpatient (CLI) | payer OTHER ==
[~2019-04-01] MED LIST changes: +Keflex500 MG PO; +Pyridium100 MG PO
== END ==
LOC: LAB SHORT 11:06 → LAB 11:06
DX: Z48.02 Encounter for removal of sutures (principal); L08.9 Local infection of the skin and subcutaneous tissue, unspecified
CPT/HCPCS: 87070; 87077; 87186; 87205

== ENCOUNTER → 2020-05-28 | Outpatient (CLI) | payer OTHER ==
[~2020-05-28] MED LIST changes: +BISA10S PR; +CARAFATE1 GM PO; +DOC250 PO; +EUTHYROX88 MCG PO; -LEVSOD100 PO; +NASACORT10.8 ML; +OMEP20ER PO; +ONDA4ODT MM; +OXYC5 PO; +PROBIOTIC1 EA13 PO; +Percocet 5-3251 EACH PO; +TRAZ50 PO
== END | disposition home or self-care (01) ==
LOC: LAB EV 12:42 → LAB SHORT 12:42
DX: Z51.81 Encounter for therapeutic drug level monitoring (principal); Z79.899 Other long term (current) drug therapy
CPT/HCPCS: G0480

== ENCOUNTER 2020-06-13 08:13 | Day surgery (SDC) | payer OTHER ==
[~2020-06-13] VITALS: Ht 162.6 cm; Wt 63.6 kg
[~2020-06-13 08:13] MED LIST changes: -BISA10S PR; -CARAFATE1 GM PO; -DOC250 PO; -NASACORT10.8 ML; -OMEP20ER PO; -OXYC5 PO; -PROBIOTIC1 EA13 PO
[2020-06-13] MEDS ORDERED: OMEP20ER PO (08:41)
[2020-08-01] MEDS ORDERED: CARAFATE1 GM PO (09:14)
[2020-08-01] MEDS ORDERED: NASACORT10.8 ML (09:14)
[2020-08-01] MEDS ORDERED: OXYC5 PO (09:14)
== END 2020-06-13 09:48 | disposition home or self-care (01) ==
LOC: ORSCSDS 08:13
PROVIDERS: Ophthalmology
PROC: 08RK3JZ Replacement of Left Lens with Synthetic Substitute, Percutaneous Approach (ICD-10-PCS; principal; 2020-06-13 09:30)
DX: H25.12 Age-related nuclear cataract, left eye (principal); I10 Essential (primary) hypertension; G47.33 Obstructive sleep apnea (adult) (pediatric); K21.9 Gastro-esophageal reflux disease without esophagitis; J44.9 Chronic obstructive pulmonary disease, unspecified; Z79.899 Other long term (current) drug therapy
CPT/HCPCS: J2001; J2250; J3010; J3301; J7040; V2632

== ENCOUNTER 2020-08-08 06:46 | Day surgery (SDC) | payer OTHER ==
[~2020-08-08] VITALS: Ht 162.6 cm; Wt 67.5 kg
[~2020-08-08 06:46] MED LIST changes: +CARAFATE1 GM PO; -EUTHYROX88 MCG PO; +LEVSOD100 PO; +NASACORT10.8 ML; +OMEP20ER PO; +OXYC5 PO
--- NOTE | 2020-08-08 07:10 | NUR ---
08/08/20 0710 Chely Long TETRACAINE DROP PLACED IN RIGHT EYE PER ORDERS.
== END 2020-08-08 08:27 | disposition home or self-care (01) ==
LOC: ORSCSDS 06:46
PROVIDERS: Ophthalmology
PROC: 08RJ3JZ Replacement of Right Lens with Synthetic Substitute, Percutaneous Approach (ICD-10-PCS; principal; 2020-08-08 08:00)
DX: H25.11 Age-related nuclear cataract, right eye (principal); I10 Essential (primary) hypertension; I48.91 Unspecified atrial fibrillation; E03.9 Hypothyroidism, unspecified; J45.909 Unspecified asthma, uncomplicated; Z79.899 Other long term (current) drug therapy; Z79.82 Long term (current) use of aspirin
CPT/HCPCS: A9270; J2001; J2250; J3010; J3301; J7040; V2632

== ENCOUNTER 2020-11-07 10:21 | Emergency (ER) | payer OTHER ==
[~2020-11-07] VITALS: Ht 162.6 cm; Wt 65.8 kg
[~2020-11-07 10:21] MED LIST changes: +EUTHYROX88 MCG PO; -LEVSOD100 PO
[2020-11-07 11:05] LABS: BASOPHILS ABSOLUTE AUTO 0.07 K/mm3 (0.00-0.23); BASOPHILS PERCENT AUTO 1 % (0-2); EOSINOPHILS ABSOLUTE AUTO 0.14 K/mm3 (0.00-0.68); EOSINOPHILS PERCENT AUTO 2 % (0-6); Hematocrit 43.2 % (33.0-51.0); Hemoglobin 14.6 g/dL (11.5-16.0); IMMATURE GRAN ABSOLUTE AUTO 0.02 K/mm3 (0.00-0.10); IMMATURE GRAN PERCENT AUTO 0 % (0-1); LYMPHOCYTES PERCENT AUTO 18 % (21-46); MONOCYTES ABSOLUTE AUTO 0.56 K/mm3 (0.16-1.47); MONOCYTES PERCENT AUTO 9 % (4-13); Mean Corpuscular HGB 30.9 pg (26.0-34.0); Mean Corpuscular HGB Conc 33.8 g/dL (31.5-36.5); Mean Corpuscular Volume 92 fL (80-100); Mean Platelet Volume 8.6 fL (9.1-12.4); NEUTROPHILS ABSOLUTE AUTO 4.24 K/mm3 (1.96-9.15); NEUTROPHILS PERCENT AUTO 69 % (41-73); Platelet Count 254 K/mm3 (150-400); RDW Coefficient Variation 13.2 % (11.7-14.2); RDW Standard Deviation 44.4 fL (35.1-46.3); Red Blood Cell Count 4.72 M/mm3 (3.80-5.20); White Blood Cell Count 6.13 K/mm3 (4.00-11.30)
[2020-11-07 11:15] LABS: Source, Urine Clean Catch
[2020-11-07 11:32] LABS: Alanine Aminotransfer (ALT/SGP 25 U/L (12-78); Albumin, Blood 3.8 g/dL (3.4-5.0); Albumin/Globulin Ratio 0.9 (0.8-1.8); Alk Phos 64 U/L (50-136); Anion Gap 5 mmol/L (6-16); Aspartate Aminotrans (AST/SGOT 22 U/L (12-37); Bilirubin, Total 0.8 mg/dL (0.1-1.0); Blood Urea Nitrogen 12 mg/dL (8-24); Bun/Creatinine Ratio 13.6 (12.0-20.0); CO2, Blood 26 mmol/L (21-32); Calcium, Blood 9.1 mg/dL (8.5-10.1); Chloride, Blood 101 mmol/L (98-108); Creatinine, Blood 0.89 mg/dL (0.40-1.00); Globulin, Blood 4.1 g/dL (2.2-4.0); Glomerular Filtration Rate >60 (60-); Glucose, Blood 92 mg/dL (70-99); Potassium, Blood 4.3 mmol/L (3.5-5.5); Sodium, Blood 132 mmol/L (136-145); Total Protein, Blood 7.9 g/dL (6.4-8.2)
[2020-11-07 11:43] LABS: Appearance, Urine Clear (Clear); Bilirubin, Urine Neg (Neg); Blood, Urine 3+ (Neg); Color, Urine Yellow (P-Yellow); Glucose Qualitative, Urine Neg (Neg); Ketones, Urine Neg (Neg); Leukocyte Esterase, Urine 2+ (Neg); Nitrite, Urine Neg (Neg); Protein, Urine 2+ (Neg); Specific Gravity, Urine 1.015 (1.003-1.022); Urobilinogen, Urine 1+ (Normal); pH, Urine 6.5 (5.0-8.0)
[2020-11-07 11:48] LABS: Bacteria Few /hpf; Mucus Light (0-Heavy); Squamous Epithelial Cells Mod /hpf (Few)
[2020-11-07 11:49] LABS: Hyaline Casts 0-2 /lpf (0-2)
[2020-11-07] MEDS ORDERED: Norco 5-325 Ta1 EACH PO (12:33)
[2020-11-07] MEDS ORDERED: BISA10S PR (14:17)
[2020-11-07] MEDS ORDERED: DOC250 PO (14:17)
[2020-11-07] MEDS ORDERED: PROBIOTIC1 EA13 PO (14:17)
== END 2020-11-07 14:35 | disposition home or self-care (01) ==
LOC: ER 10:21
PROVIDERS: Emergency Medicine
DX: K59.00 Constipation, unspecified (principal); I48.91 Unspecified atrial fibrillation; E03.9 Hypothyroidism, unspecified; Z91.09 Other allergy status, other than to drugs and biological substances; Z79.899 Other long term (current) drug therapy
CPT/HCPCS: 36415; 74022; 74176; 80053; 81001; 85025; 87086; 99284-25

== ENCOUNTER 2021-12-20 08:58 | Emergency (ER) | payer OTHER ==
[~2021-12-20] VITALS: Ht 162.6 cm; Wt 68.0 kg
[~2021-12-20 08:58] MED LIST changes: +BISA10S PR; +DOC250 PO; +PROBIOTIC1 EA13 PO
[2021-12-20 10:20] LABS: BASOPHILS ABSOLUTE AUTO 0.06 K/mm3 (0.00-0.23); BASOPHILS PERCENT AUTO 1 % (0-2); EOSINOPHILS ABSOLUTE AUTO 0.15 K/mm3 (0.00-0.68); EOSINOPHILS PERCENT AUTO 3 % (0-6); Hematocrit 42.6 % (33.0-51.0); IMMATURE GRAN PERCENT AUTO 0 % (0-1); LYMPHOCYTES ABSOLUTE AUTO 0.99 K/mm3 (0.84-5.20); LYMPHOCYTES PERCENT AUTO 19 % (21-46); MONOCYTES ABSOLUTE AUTO 0.62 K/mm3 (0.16-1.47); MONOCYTES PERCENT AUTO 12 % (4-13); Mean Corpuscular HGB 29.9 pg (26.0-34.0); Mean Corpuscular HGB Conc 32.9 g/dL (31.5-36.5); Mean Corpuscular Volume 91 fL (80-100); Mean Platelet Volume 9.1 fL (9.1-12.4); NEUTROPHILS ABSOLUTE AUTO 3.43 K/mm3 (1.96-9.15); NEUTROPHILS PERCENT AUTO 65 % (41-73); Platelet Count 253 K/mm3 (150-400); RDW Coefficient Variation 13.6 % (11.7-14.2); RDW Standard Deviation 45.6 fL (35.1-46.3); Red Blood Cell Count 4.68 M/mm3 (3.80-5.20); White Blood Cell Count 5.25 K/mm3 (4.00-11.30)
[2021-12-20 10:44] LABS: Albumin, Blood 3.7 g/dL (3.4-5.0); Albumin/Globulin Ratio 0.9 (0.8-1.8); Bilirubin, Total 0.8 mg/dL (0.1-1.0); Bun/Creatinine Ratio 17.2 (12.0-20.0); Calcium, Blood 9.1 mg/dL (8.5-10.1); Creatinine, Blood 0.93 mg/dL (0.40-1.00); Globulin, Blood 3.9 g/dL (2.2-4.0); Potassium, Blood 4.2 mmol/L (3.5-5.5); Total Protein, Blood 7.6 g/dL (6.4-8.2)
== END 2021-12-20 13:15 | disposition home or self-care (01) ==
LOC: ER 08:58
PROVIDERS: Physician Assistant
DX: K59.00 Constipation, unspecified (principal); K21.9 Gastro-esophageal reflux disease without esophagitis; E03.9 Hypothyroidism, unspecified; J44.9 Chronic obstructive pulmonary disease, unspecified; Z91.09 Other allergy status, other than to drugs and biological substances; Z79.899 Other long term (current) drug therapy
CPT/HCPCS: 74177; 80053; 85025; Q9967

== ENCOUNTER 2022-06-16 12:18 | Emergency (ER) | payer OTHER ==
[~2022-06-16] VITALS: Ht 162.6 cm; Wt 68.0 kg
[2022-06-16] MEDS ORDERED: TIZA4 PO ×2 (15:06→15:34)
[2022-06-16] MEDS ORDERED: Percocet 5-3251 EACH PO ×2 (15:06→15:34)
== END 2022-06-16 15:37 | disposition home or self-care (01) ==
LOC: ER 12:18
DX: M54.9 Dorsalgia, unspecified (principal); G89.29 Other chronic pain; E03.9 Hypothyroidism, unspecified; J44.9 Chronic obstructive pulmonary disease, unspecified; W22.8XXA Striking against or struck by other objects, initial encounter; Z88.8 Allergy status to other drugs, medicaments and biological substances; Z79.890 Hormone replacement therapy; Z79.899 Other long term (current) drug therapy
CPT/HCPCS: 72070; 72100; A9270

== ENCOUNTER → 2022-06-27 | Outpatient (CLI) | payer OTHER ==
[~2022-06-27] MED LIST changes: +TIZA4 PO
[2022-06-27 16:18] LABS: Source, Urine Voided
[2022-06-27 16:47] LABS: Bacteria Not Seen /hpf; Red Blood Cells, Urine 0-2 /hpf (0-2); Squamous Epithelial Cells Few /hpf (Few); White Blood Cells, Urine Not Seen /hpf (0-5)
== END | disposition home or self-care (01) ==
LOC: LAB 16:17 → LAB SHORT 16:17
PROVIDERS: Physician Assistant
DX: M54.50 Low back pain, unspecified (principal); R31.29 Other microscopic hematuria
CPT/HCPCS: 81015

== ENCOUNTER 2023-01-15 08:06 | Observation (INO) | payer OTHER ==
[~2023-01-15] VITALS: Ht 170.2 cm; Wt 66.9 kg
[2023-01-15 09:47] LABS: BASOPHILS ABSOLUTE AUTO 0.03 K/mm3 (0.00-0.23); BASOPHILS PERCENT AUTO 0 % (0-2); EOSINOPHILS ABSOLUTE AUTO 0.01 K/mm3 (0.00-0.68); EOSINOPHILS PERCENT AUTO 0 % (0-6); Hematocrit 37.8 % (33.0-51.0); Hemoglobin 12.9 g/dL (11.5-16.0); IMMATURE GRAN ABSOLUTE AUTO 0.03 K/mm3 (0.00-0.10); IMMATURE GRAN PERCENT AUTO 0 % (0-1); LYMPHOCYTES PERCENT AUTO 9 % (21-46); MONOCYTES ABSOLUTE AUTO 0.57 K/mm3 (0.16-1.47); MONOCYTES PERCENT AUTO 7 % (4-13); Mean Corpuscular HGB 30.9 pg (26.0-34.0); Mean Corpuscular HGB Conc 34.1 g/dL (31.5-36.5); Mean Corpuscular Volume 90 fL (80-100); Mean Platelet Volume 8.3 fL (9.1-12.4); NEUTROPHILS ABSOLUTE AUTO 6.59 K/mm3 (1.96-9.15); NEUTROPHILS PERCENT AUTO 83 % (41-73); Platelet Count 237 K/mm3 (150-400); RDW Coefficient Variation 12.9 % (11.7-14.2); RDW Standard Deviation 42.5 fL (35.1-46.3); Red Blood Cell Count 4.18 M/mm3 (3.80-5.20); White Blood Cell Count 7.93 K/mm3 (4.00-11.30)
[2023-01-15 10:16] LABS: Albumin, Blood 3.3 g/dL (3.4-5.0); Albumin/Globulin Ratio 0.9 (0.8-1.8); Bun/Creatinine Ratio 11.2 (12.0-20.0); Calcium, Blood 8.4 mg/dL (8.5-10.1); Creatinine, Blood 0.72 mg/dL (0.40-1.00); Globulin, Blood 3.7 g/dL (2.2-4.0)
[2023-01-15 15:15] VITALS: BP 132/85
--- NOTE | 2023-01-15 16:00 | NUR ---
PT A&OX4, VSS/RA, DONTRELL PO, PUREWICK IN PLACE, DENIES PAIN/NEED FOR MED AT THIS TIME, REPOSITIONS SELF, CALL LIGHT IN PLACE. WILL REPORT TO ONCOMING RN.
[2023-01-15 19:12] VITALS: BP 119/76
[2023-01-16 02:13] VITALS: BP 133/75
[2023-01-16 04:48] LABS: BASOPHILS ABSOLUTE AUTO 0.05 K/mm3 (0.00-0.23); BASOPHILS PERCENT AUTO 1 % (0-2); EOSINOPHILS ABSOLUTE AUTO 0.22 K/mm3 (0.00-0.68); EOSINOPHILS PERCENT AUTO 4 % (0-6); Hematocrit 33.9 % (33.0-51.0); Hemoglobin 11.6 g/dL (11.5-16.0); IMMATURE GRAN ABSOLUTE AUTO 0.02 K/mm3 (0.00-0.10); IMMATURE GRAN PERCENT AUTO 0 % (0-1); LYMPHOCYTES ABSOLUTE AUTO 1.03 K/mm3 (0.84-5.20); LYMPHOCYTES PERCENT AUTO 18 % (21-46); MONOCYTES ABSOLUTE AUTO 0.53 K/mm3 (0.16-1.47); MONOCYTES PERCENT AUTO 9 % (4-13); Mean Corpuscular HGB 30.9 pg (26.0-34.0); Mean Corpuscular HGB Conc 34.2 g/dL (31.5-36.5); Mean Corpuscular Volume 90 fL (80-100); Mean Platelet Volume 8.4 fL (9.1-12.4); NEUTROPHILS ABSOLUTE AUTO 3.76 K/mm3 (1.96-9.15); NEUTROPHILS PERCENT AUTO 67 % (41-73); Platelet Count 205 K/mm3 (150-400); RDW Coefficient Variation 13.2 % (11.7-14.2); RDW Standard Deviation 43.4 fL (35.1-46.3); Red Blood Cell Count 3.76 M/mm3 (3.80-5.20); White Blood Cell Count 5.61 K/mm3 (4.00-11.30)
[2023-01-16 05:08] LABS: Albumin, Blood 2.8 g/dL (3.4-5.0); Albumin/Globulin Ratio 0.8 (0.8-1.8); Bilirubin, Total 0.6 mg/dL (0.1-1.0); Bun/Creatinine Ratio 10.3 (12.0-20.0); Calcium, Blood 8.5 mg/dL (8.5-10.1); Creatinine, Blood 0.87 mg/dL (0.40-1.00); Globulin, Blood 3.3 g/dL (2.2-4.0); Potassium, Blood 3.9 mmol/L (3.5-5.5); Total Protein, Blood 6.1 g/dL (6.4-8.2)
--- NOTE | 2023-01-16 05:13 | NUR ---
SHIFT SUMMARY VSS. TELE READS SR 66, NO EVENTS NOTED T/O THE NIGHT. PT SLEPT WELL T/O THE NIGHT. MEDICATED FOR PAIN WITH NORCO, TORADOL, AND TYLENOL WITH GOOD RESULTS. PT REMAINS ON RA T/O THE NIGHT. C/O PAIN WITH DEEP INSPIRATION AND COUGHING. EDUCATED OON I.S USE. PT UTILIZED PUREWICK T/O THE NIGHT WITH GOOD URINE OUTPUT. PT TOLLERATING PO INTAKE W/O N/V. IV FLUIDS INFUSING. NO ACUTE EVENTS T/O THE NIGHT. PLAN TO POSSIBLY D/C TODAY.
[2023-01-16 07:17] VITALS: BP 138/87
[2023-01-16] MEDS ORDERED: Acetaminophen650 M1 PO (11:24)
[2023-01-16] MEDS ORDERED: DOCU100 PO (11:25)
[2023-01-16] MEDS ORDERED: LOSA25 PO (11:25)
[2023-01-16] MEDS ORDERED: Percocet 5-3251 EACH PO (11:27)
--- NOTE | 2023-01-16 11:45 | NUR ---
DISCHARGE SUMMARY PT A&OX4, VSS/RA, DONTRELL PO, VOIDING, AMB FWW/UP TO CHAIR, PAIN MANAGED, IV DC'D. DC INS PROVIDED. PT REP UNDERSTANDING THOSE INSTRUCTIONS INCLUDING FU APPT WITH EFM. LEFT FLOOR VIA WC WITH ORDER MANAGER TO GO HOME WITH DAUGHTER WITH ALL PERSONAL BELONGINGS INCLUDING DC PACKET.
== END 2023-01-16 11:15 | disposition home or self-care (01) ==
LOC: ER 08:06 → MEDS 08:07 → SURS 15:11
PROVIDERS: Student in an Organized Health Care Education/Training Program; ADMIT Family Medicine
DX: S22.20XA Unspecified fracture of sternum, initial encounter for closed fracture (principal); J45.909 Unspecified asthma, uncomplicated; K21.9 Gastro-esophageal reflux disease without esophagitis; E03.9 Hypothyroidism, unspecified; F32.9 Major depressive disorder, single episode, unspecified; J44.9 Chronic obstructive pulmonary disease, unspecified; I48.0 Paroxysmal atrial fibrillation; M19.90 Unspecified osteoarthritis, unspecified site; W01.0XXA Fall on same level from slipping, tripping and stumbling without subsequent striking against object, initial encounter
CPT/HCPCS: 36415; 70450; 71260; 72125; 80053; 85025; 93005; 93010; 96374; 96375; 96376; 97116; 97161; 97530; 99285-25; A9270; G0378; J1885; J3010; J7030; Q9967

== ENCOUNTER 2024-03-17 08:03 | Day surgery (SDC) | payer OTHER ==
[~2024-03-17] VITALS: Ht 160 cm; Wt 62.1 kg
[~2024-03-17 08:03] MED LIST changes: +Acetaminophen650 M1 PO; +LOSA25 PO; +MAGCIT300 PO; +MIRALAX17 GM PO
[2024-03-17] MEDS ORDERED: propofoL 50 ML IV ONE (08:14)
[2024-03-17] MEDS ORDERED: Lactated Ringer's 1,000 ML IV ONE ×2 (08:15→09:05)
[2024-03-17 10:19] VITALS: BP 125/77
--- NOTE | 2024-03-17 10:23 | NUR ---
03/17/24 1023 Carlos Greenberg PT C/O 11/03 CHRONIC BACK PAIN. PT ASKED IF SHE COULD TAKE 0.5 TABLET OF 5/325 NORCO, HOME MEDICATION. RN ASKED DR. LARA IF IT WOULD BE APPROPRIATE, AND AGREED IT IS OKAY. PT ALSO REPOSITIONED TO HELP RELIEVE PAIN. DAUGHTER, ANT, AT BEDSIDE.
[2024-03-18] MEDS ORDERED: LIDO700A20 TOP (22:09)
[2024-03-18] MEDS ORDERED: MIRALAX17 GM PO (22:09)
== END 2024-03-17 10:28 | disposition home or self-care (01) ==
LOC: ORSCSDS 08:03
PROVIDERS: Surgery
PROC: 0DB68ZX Excision of Stomach, Via Natural or Artificial Opening Endoscopic, Diagnostic (ICD-10-PCS; principal; 2024-03-17 09:30)
DX: R13.10 Dysphagia, unspecified (principal); K21.9 Gastro-esophageal reflux disease without esophagitis; K44.9 Diaphragmatic hernia without obstruction or gangrene; R09.82 Postnasal drip; K29.70 Gastritis, unspecified, without bleeding; J45.909 Unspecified asthma, uncomplicated; E03.9 Hypothyroidism, unspecified; Z79.899 Other long term (current) drug therapy
CPT/HCPCS: 88305; 88342; J2704; J7120

== ENCOUNTER 2024-03-18 16:54 | Emergency (ER) | payer OTHER ==
[~2024-03-18] VITALS: Ht 160 cm; Wt 61.2 kg
[2024-03-18] MEDS ORDERED: Morphine Sulfate 4 MG/1 ML Injection IV ONE ×2 (20:05→21:10)
[2024-03-18 20:33] LABS: BASOPHILS ABSOLUTE AUTO 0.06 K/mm3 (0.00-0.23); BASOPHILS PERCENT AUTO 1 % (0-2); EOSINOPHILS ABSOLUTE AUTO 0.06 K/mm3 (0.00-0.68); EOSINOPHILS PERCENT AUTO 1 % (0-6); Hematocrit 39.4 % (33.0-51.0); Hemoglobin 13.6 g/dL (11.5-16.0); IMMATURE GRAN ABSOLUTE AUTO 0.02 K/mm3 (0.00-0.10); IMMATURE GRAN PERCENT AUTO 0 % (0-1); LYMPHOCYTES ABSOLUTE AUTO 0.87 K/mm3 (0.84-5.20); LYMPHOCYTES PERCENT AUTO 11 % (21-46); MONOCYTES PERCENT AUTO 8 % (4-13); Mean Corpuscular HGB 31.2 pg (26.0-34.0); Mean Corpuscular HGB Conc 34.5 g/dL (31.5-36.5); Mean Corpuscular Volume 90 fL (80-100); Mean Platelet Volume 8.2 fL (9.1-12.4); NEUTROPHILS ABSOLUTE AUTO 6.59 K/mm3 (1.96-9.15); NEUTROPHILS PERCENT AUTO 80 % (41-73); Platelet Count 287 K/mm3 (150-400); RDW Coefficient Variation 13.1 % (11.7-14.2); RDW Standard Deviation 43.8 fL (35.1-46.3); Red Blood Cell Count 4.36 M/mm3 (3.80-5.20)
[2024-03-18 20:58] LABS: Magnesium, Blood 2.9 mg/dL (1.6-2.4)
[2024-03-18 20:59] LABS: Albumin, Blood 3.5 g/dL (3.4-5.0); Albumin/Globulin Ratio 0.9 (0.8-1.8); Bilirubin, Total 0.8 mg/dL (0.1-1.0); Bun/Creatinine Ratio 11.7 (12.0-20.0); Calcium, Blood 9.3 mg/dL (8.5-10.1); Creatinine, Blood 0.94 mg/dL (0.40-1.00); Globulin, Blood 3.8 g/dL (2.2-4.0); Potassium, Blood 4.5 mmol/L (3.5-5.5); Total Protein, Blood 7.3 g/dL (6.4-8.2)
[2024-03-18] MEDS ORDERED: Ondansetron HCl 2 MG / ML 2ML Vial IV ONE (21:10)
[2024-03-18] MEDS ORDERED: MIRALAX17 GM PO (22:09)
[2024-03-18] MEDS ORDERED: LIDO700A20 TOP (22:09)
[2024-03-18 22:30] VITALS: BP 117/79
[2024-03-19] MEDS ORDERED: Lactulose 200 GM/300 ML Enema 300ML BTL PR ONE (00:30)
[2024-03-19] MEDS ORDERED: Droperidol 5 mg/2 ml Vial IV ONE (01:50)
[2024-03-19] MEDS ORDERED: Glycerin Adult Supp 1 EA PR ONE (02:20)
[2024-03-19] MEDS ORDERED: DOC250 PO (02:26)
[2024-03-19] MEDS ORDERED: ADULT GLYCERIN1 EACH PR (02:26)
== END 2024-03-19 03:02 | disposition home or self-care (01) ==
LOC: ER 16:54
PROVIDERS: Emergency Medicine
DX: K59.00 Constipation, unspecified (principal); M54.6 Pain in thoracic spine; I10 Essential (primary) hypertension; E11.9 Type 2 diabetes mellitus without complications; E78.5 Hyperlipidemia, unspecified; I48.91 Unspecified atrial fibrillation; J45.909 Unspecified asthma, uncomplicated; Z79.899 Other long term (current) drug therapy; Z91.048 Other nonmedicinal substance allergy status
CPT/HCPCS: 72100; 72128; 74177; 80053; 83690; 83735; 85025; 96374-59; 96375; 96376; 99284-25; A9270; J1790; J2270; J2405; Q9967

== ENCOUNTER 2024-06-17 12:01 | Emergency (ER) | payer OTHER ==
[~2024-06-17] VITALS: Ht 157.5 cm; Wt 59.0 kg
[~2024-06-17 12:01] MED LIST changes: +ADULT GLYCERIN1 EACH PR; +ALBU90OI INH; +CARV3.125 PO; -CARV6.25 PO; -EUTHYROX88 MCG PO; +LEVSOD75 PO; +LIDO700A20 TOP
[2024-06-17 12:37] LABS: BASOPHILS ABSOLUTE AUTO 0.06 K/mm3 (0.00-0.23); BASOPHILS PERCENT AUTO 1 % (0-2); EOSINOPHILS PERCENT AUTO 1 % (0-6); Hematocrit 38.8 % (33.0-51.0); Hemoglobin 13.2 g/dL (11.5-16.0); IMMATURE GRAN ABSOLUTE AUTO 0.04 K/mm3 (0.00-0.10); IMMATURE GRAN PERCENT AUTO 1 % (0-1); LYMPHOCYTES ABSOLUTE AUTO 1.06 K/mm3 (0.84-5.20); LYMPHOCYTES PERCENT AUTO 14 % (21-46); MONOCYTES PERCENT AUTO 9 % (4-13); Mean Corpuscular HGB 31.7 pg (26.0-34.0); Mean Corpuscular Volume 93 fL (80-100); Mean Platelet Volume 8.3 fL (9.1-12.4); NEUTROPHILS ABSOLUTE AUTO 5.61 K/mm3 (1.96-9.15); NEUTROPHILS PERCENT AUTO 74 % (41-73); Platelet Count 368 K/mm3 (150-400); RDW Coefficient Variation 13.3 % (11.7-14.2); RDW Standard Deviation 45.5 fL (35.1-46.3); Red Blood Cell Count 4.16 M/mm3 (3.80-5.20); White Blood Cell Count 7.57 K/mm3 (4.00-11.30)
[2024-06-17] MEDS ORDERED: Morphine Sulfate 10 MG/ML 1MLSYR IV ONE (12:50)
[2024-06-17] MEDS ORDERED: Pantoprazole Sodium 40 MG Injection IV ONE (12:55)
[2024-06-17 13:08] LABS: Albumin, Blood 3.5 g/dL (3.4-5.0); Albumin/Globulin Ratio 0.9 (0.8-1.8); Bilirubin, Total 0.5 mg/dL (0.1-1.0); Bun/Creatinine Ratio 13.1 (12.0-20.0); Calcium, Blood 9.4 mg/dL (8.5-10.1); Creatinine, Blood 0.92 mg/dL (0.40-1.00); Globulin, Blood 4.1 g/dL (2.2-4.0); Potassium, Blood 4.2 mmol/L (3.5-5.5); Total Protein, Blood 7.6 g/dL (6.4-8.2)
[2024-06-17] MEDS ORDERED: NS 1,000 ML IV SCH ×2 (14:15→16:15)
[2024-06-17] MEDS ORDERED: Mag Hydrox/AL Hydrox/Simeth 30 ML UDC PO ONE (14:15)
[2024-06-17] MEDS ORDERED: Lidocaine 2% Viscous Soln 15 ML UDC SS ONE (14:15)
[2024-06-17 15:15] VITALS: BP 125/73
[2024-06-17] MEDS ORDERED: OMEPRAZOLE20 M2 PO (15:17)
== END 2024-06-17 15:36 | disposition home or self-care (01) ==
LOC: ER 12:01
PROVIDERS: Physician Assistant
DX: R13.10 Dysphagia, unspecified (principal); I10 Essential (primary) hypertension; E11.9 Type 2 diabetes mellitus without complications; E78.5 Hyperlipidemia, unspecified; J45.909 Unspecified asthma, uncomplicated; I48.91 Unspecified atrial fibrillation; Z79.899 Other long term (current) drug therapy; Z79.891 Long term (current) use of opiate analgesic; Z79.52 Long term (current) use of systemic steroids; Z91.09 Other allergy status, other than to drugs and biological substances
CPT/HCPCS: 80053; 85025; 96374; 96375; 99283-25; A9270; J2270; J2470; J7030

== ENCOUNTER 2024-07-20 09:47 | Day surgery (SDC) | payer OTHER ==
[2024-07-20] VITALS (15 sets, daily range): BP systolic 98–143; BP diastolic 65–96
[~2024-07-20] VITALS: Ht 157.5 cm; Wt 65.5 kg
[~2024-07-20 09:47] MED LIST changes: +DULCOLAX400 MG/51 PO; -LEVSOD75 PO; +LEVSOD88 PO; +OMEPRAZOLE20 M2 PO
[2024-07-20] MEDS ORDERED: Lactated Ringer's 1,000 ML IV SCH (10:45)
--- NOTE | 2024-07-20 10:54 | NUR ---
History, Chart, Medications and Allergies reviewed before start of procedure. Patient confirms NPO status and agrees with scheduled surgery. Pre-Op teaching done. Pt verbalizes understanding Lungs clear T/O to Auscultation. Patient States Post-Procedure ride home has been arranged.
[2024-07-20] MEDS ORDERED: propofoL 20 ML IV ONE (11:49)
[2024-07-20] MEDS ORDERED: Benzocaine Oral Spray 0.5ML UD ONE (11:49)
--- NOTE | 2024-07-20 12:20 | NUR ---
07/20/24 1220 Criselda Palm 1202 CONFIRMED AND REVIEWED H&P, MEDCICATIONS, ALLERGIES, MEDICAL HISTORY, RESPIRATORY HISTORY, VITAL SIGNS, 3-LEAD EKG, CONSENTS, AND PHYSICIAN ORDERS. PATIENT CONFIRMS NPO STATUS AND AGREES WITH SCHEDULED PROCEDURE. MONITOR INTACT WITH CONTINUOUS PULSE OXIMETRY, CAPNOGRAPHY, 3-LEAD EKG, INTERMITTENT BP. SUPPLEMENTAL O2 TO BE TITRATED THROUGHOUT PROCEDURE TO MAINTAIN O2 SATURATION ABOVE 90%. PATIENT DETERMINED TO BE ASA APPROPRIATE FOR PROPOFOL SEDATION PRIOR TO START OF PROCEDURE BY . MALLAMPATI CLASS 3 AIRWAY: VISUALIZATION OF ONLY THE BASE OF THE UVULA.
[2024-07-20] MEDS ORDERED: EpiNEPhrine 1 MG/1 ML 1ML Vial ONE (12:21)
--- NOTE | 2024-07-20 13:08 | NUR ---
Patient up to Ambulate independently. Gait steady. Discharge instructions reviewed with patient. Patient verbalizes understanding. Copy given to patient to take home. Patient States Post-Procedure ride home has been arranged. Discharged via wheelchair to private car for ride home.
== END 2024-07-20 23:00 | disposition home or self-care (01) ==
LOC: ORSCMMR 09:47 → ORD 11:00 → ORSCMMR 23:00
PROVIDERS: Surgery
PROC: 0DB58ZX Excision of Esophagus, Via Natural or Artificial Opening Endoscopic, Diagnostic (ICD-10-PCS; principal; 2024-07-20 12:00)
PROC: 0D758ZZ Dilation of Esophagus, Via Natural or Artificial Opening Endoscopic (ICD-10-PCS; principal; 2024-07-20 12:00)
DX: K22.4 Dyskinesia of esophagus (principal); Z98.890 Other specified postprocedural states; K21.00 Gastro-esophageal reflux disease with esophagitis, without bleeding; E03.9 Hypothyroidism, unspecified; Z79.899 Other long term (current) drug therapy
CPT/HCPCS: 88305; 88312; A9270; C1726; J0171; J2704; J7120

== ENCOUNTER 2024-12-28 12:25 | Observation (INO) | payer OTHER ==
[~2024-12-28] VITALS: Ht 157.5 cm; Wt 55.2 kg
[2024-12-28 13:41] LABS: BASOPHILS ABSOLUTE AUTO 0.08 K/mm3 (0.00-0.23); BASOPHILS PERCENT AUTO 1 % (0-2); EOSINOPHILS ABSOLUTE AUTO 0.21 K/mm3 (0.00-0.68); EOSINOPHILS PERCENT AUTO 3 % (0-6); Hematocrit 37.5 % (33.0-51.0); Hemoglobin 12.9 g/dL (11.5-16.0); IMMATURE GRAN ABSOLUTE AUTO 0.03 K/mm3 (0.00-0.10); IMMATURE GRAN PERCENT AUTO 0 % (0-1); LYMPHOCYTES ABSOLUTE AUTO 0.83 K/mm3 (0.84-5.20); LYMPHOCYTES PERCENT AUTO 11 % (21-46); MONOCYTES ABSOLUTE AUTO 0.69 K/mm3 (0.16-1.47); MONOCYTES PERCENT AUTO 9 % (4-13); Mean Corpuscular HGB Conc 34.4 g/dL (31.5-36.5); Mean Corpuscular Volume 94 fL (80-100); NEUTROPHILS ABSOLUTE AUTO 5.53 K/mm3 (1.96-9.15); NEUTROPHILS PERCENT AUTO 75 % (41-73); NRBC ABSOLUTE 0.00 K/mm3 (0.00-0.02); NRBC Auto 0.0 /100 WBC (0.0-0.2); Platelet Count 244 K/mm3 (150-400); RDW Coefficient Variation 12.8 % (11.7-14.2); RDW Standard Deviation 44.0 fL (35.1-46.3)
[2024-12-28 14:08] LABS: Alanine Aminotransfer (ALT/SGP 26.0 U/L (12-78); Albumin, Blood 3.4 g/dL (3.4-5.0); Albumin/Globulin Ratio 0.9 (0.8-1.8); Anion Gap 10.0 mmol/L (3-11); Aspartate Aminotrans (AST/SGOT 27.0 U/L (12-37); Bilirubin, Total 0.8 mg/dL (0.1-1.0); Blood Urea Nitrogen 11.0 mg/dL (8-24); CO2, Blood 24.0 mmol/L (21-32); Calcium, Blood 8.4 mg/dL (8.5-10.1); Chloride, Blood 95.0 mmol/L (98-108); Creatinine, Blood 0.82 mg/dL (0.40-1.00); Globulin, Blood 3.7 g/dL (2.2-4.0); Glucose, Blood 90.0 mg/dL (70-99); Potassium, Blood 4.4 mmol/L (3.5-5.5); Sodium, Blood 125.0 mmol/L (136-145); Total Protein, Blood 7.1 g/dL (6.4-8.2)
[2024-12-28 16:57] LABS: pH Blood Venous 7.43 (7.34-7.37)
[2024-12-28 17:26] LABS: Source, Urine Clean Catch
[2024-12-28 17:30] LABS: Bilirubin, Urine Neg (Neg); Glucose Qualitative, Urine Neg (Neg); Ketones, Urine Neg (Neg); Leukocyte Esterase, Urine 1+ (Neg); Protein, Urine Neg (Neg); Specific Gravity, Urine 1.005 (1.003-1.022); Urobilinogen, Urine NORM (Normal)
[2024-12-28 17:35] LABS: Color, Urine Pale Yellow (P-Yellow)
[2024-12-28 17:37] LABS: Red Blood Cells, Urine 0-2 /hpf (0-2)
[2024-12-28] MEDS ORDERED: NS 1,000 ML IV SCH (19:40)
[2024-12-28] MEDS ORDERED: Albuterol 2.5 MG/3 ML VIAL INH PRN (19:50)
[2024-12-28] MEDS ORDERED: NS 500 ML IV ONE (20:00)
[2024-12-28] MEDS ORDERED: Norco 5-325 Ta1 EACH PO (20:01)
[2024-12-28] MEDS ORDERED: NS 1,000 ML IV ONE (20:05)
[2024-12-28] MEDS ORDERED: HYDROcodone 5-APAP 325 TAB PO PRN (20:10)
[2024-12-28 23:00] VITALS: BP 127/77
[2024-12-28 23:57] LABS: Anion Gap 12.0 mmol/L (3-11); Blood Urea Nitrogen 10.0 mg/dL (8-24); CO2, Blood 21.0 mmol/L (21-32); Calcium, Blood 8.5 mg/dL (8.5-10.1); Chloride, Blood 100.0 mmol/L (98-108); Creatinine, Blood 0.71 mg/dL (0.40-1.00); Glucose, Blood 81.0 mg/dL (70-99); Potassium, Blood 3.9 mmol/L (3.5-5.5); Sodium, Blood 129.0 mmol/L (136-145)
--- NOTE | 2024-12-29 04:09 | NUR ---
SHIFT SUMMARY; AFTER BEING ADMITTED, PATIENT ATE MAC N CHEESE, SINCE SHE COULD CHEW IT EASILY. CALLED DR FOR TRAZADONE ORDER. ABLE TO AMB WITH HAND HOLDING ASSIST. IV INFUSING NS/125ML/HR. TELE SR 76
[2024-12-29 05:33] VITALS: BP 110/70
[2024-12-29 07:24] LABS: Anion Gap 13.0 mmol/L (3-11); Blood Urea Nitrogen 12.0 mg/dL (8-24); CO2, Blood 19.0 mmol/L (21-32); Calcium, Blood 8.1 mg/dL (8.5-10.1); Chloride, Blood 104.0 mmol/L (98-108); Creatinine, Blood 0.73 mg/dL (0.40-1.00); Glucose, Blood 81.0 mg/dL (70-99); Magnesium, Blood 2.0 mg/dL (1.6-2.4); Potassium, Blood 4.1 mmol/L (3.5-5.5); Sodium, Blood 132.0 mmol/L (136-145)
[2024-12-29 07:32] VITALS: BP 111/64
[2024-12-29] MEDS ORDERED: Enoxaparin 40 MG/0.4 ML SYR SC SCH (09:00)
[2024-12-29 11:33] VITALS: BP 111/67
--- NOTE | 2024-12-29 15:42 | NUR ---
assumed care. \ a/o x 4 no c/o pain at this time, pt is hoping to go home later if MD ALLOWS. NO S/S OF DISTRESS PT STATES SHE FEELS MUCH BETTER. LABS ALMOST WITHIN NORMAL RANGE.
--- NOTE | 2024-12-29 15:43 | NUR ---
MD AT BEDSIDE AND DISCHARGE ORDERS GIVEN, IV DCED INSTRUCTIONS EXPLAINED, RECOMMENDATIONS ON DAILY FLUID INTAKE GIVEN. PT TAKEN TO CAR AND DROVE SELF HOME .
== END 2024-12-29 13:51 | disposition home or self-care (01) ==
LOC: ER 12:25 → MEDS 12:26
PROVIDERS: Emergency Medicine; Nurse Practitioner Acute Care; Physician Assistant; ADMIT Internal Medicine
DX: E87.1 Hypo-osmolality and hyponatremia (principal); J45.909 Unspecified asthma, uncomplicated; E03.9 Hypothyroidism, unspecified; I25.10 Atherosclerotic heart disease of native coronary artery without angina pectoris; F32.A Depression, unspecified; I48.0 Paroxysmal atrial fibrillation; M79.605 Pain in left leg; R06.00 Dyspnea, unspecified; K59.09 Other constipation; Z79.890 Hormone replacement therapy; Z79.899 Other long term (current) drug therapy; Z91.09 Other allergy status, other than to drugs and biological substances
CPT/HCPCS: 36415; 71046; 71275; 80048; 80053; 81001; 82803; 83690; 83735; 83930; 83935; 84300; 84443; 84484; 85025; 85379; 87086; 93005; 93010; 96372; 99285-25; A9270; G0378; J1650; J7030; J7040; Q9967

== ENCOUNTER → 2025-01-04 | Outpatient (CLI) | payer OTHER | LOC: LAB 17:39 → LAB SHORT 17:39 | DX: R39.9 Unspecified symptoms and signs involving the genitourinary system (principal) | CPT/HCPCS: 87086 ==